=== PATIENT | male | born 1960 | race African-American/Black ===

== ENCOUNTER 2019-01-12 11:24 | Inpatient (IN) ==
[2019-01-12] MEDS ORDERED: ZOFRAN IV ONE (12:00)
[2019-01-12] MEDS ORDERED: MORPHINE IV ONE (12:00)
[2019-01-12] MEDS ORDERED: NS 1,000 ML IV ONE (12:00)
[2019-01-12 12:21] LABS: BASO# 0.03 X1000 (0.0-0.2); BASO% 0.3 % (0.0-0.8); EOS# 0.13 X1000 (0.0-0.7); EOS% 1.1 % (0.0-10.0); HEMATOCRIT 43.7 % (42.0-52.0); HEMOGLOBIN 14.8 g/dL (14.0-18.0); IMM GRAN# 0.05 X1000 (0.0-0.04); IMM GRAN% 0.4 % (0.0-0.5); LYMPH% 20.9 % (20.5-51.1); MCHC 33.9 g/dL (33-37); MCV 91.4 FL (81-99); MONO# 0.97 X1000 (0.11-0.59); MONO% 8.1 % (1.7-9.3); MPV 9.7 FL (7.4-10.4); NEUT# 8.26 X1000 (1.4-6.5); NEUT% 69.2 % (42.2-75.2); PLT 275 X1000 (130-400); RBC 4.78 XMIL (4.7-6.1); RDW 12.4 % (11.5-14.5); WBC 11.94 X1000 (4.8-10.8)
--- NOTE | 2019-01-12 12:42 | Diag Imaging Result Doc PS360 ---
EXAM: CT ABDOMEN/PELVIS W/O CONTRAST 01/12/2019 HISTORY: FLANK PAIN TECHNIQUE: This exam was performed using automated exposure control, adjustment of mA or kV according to patient size, and/or use of iterative reconstruction technique. COMMENT: There are no previous studies available for comparison. There is no evidence of acute disease in the visualized portion of the chest. There are calcifications in the mitral valve annulus. The spleen is not enlarged. There is some apparent hyperplasia of the left adrenal gland. There is no evidence of nephrolithiasis or hydronephrosis. There is some stool throughout the colon. There is a fat-containing umbilical hernia. There is stool in the rectum. The urinary bladder is not distended. There is no evidence of appendicitis. There is dilatation of some of the jejunal loops with decompression of the distal ileum. IMPRESSION: No evidence of urolithiasis or obstructive uropathy. Apparent distal small bowel obstruction. Constipation. Electronically signed by Derian Rasheed 01/12/2019 12:39 PM
[2019-01-12 12:51] LABS: AGAP 11; ALB/GLOB RATIO 1.4; ALBUMIN 3.7 g/dL (3.5-5.0); ALKALINE PHOSPHATASE 99 U/L (32-122); BUN 11 mg/dL (8-22); CALCIUM 9.2 mg/dL (8.8-10.2); CHLORIDE 103 mmol/L (98-107); COSMO 279; CREATININE 0.7 mg/dL (0.7-1.2); ESTIMATED GFR > 60; GLUCOSE 141 mg/dL (70-104); GOT 18 U/L (10-34); GPT 17 U/L (10-44); LIPASE 88 U/L (13-60); SODIUM 139 mmol/L (136-145); TCO2 25 mmol/L (25-35); TOTAL BILIRUBIN 0.36 mg/dL (0.20-1.00); TOTAL PROTEIN 6.3 g/dL (6.3-8.3)
--- NOTE | 2019-01-12 13:04 | PROVIDER DOCUMENTATION ---
This chart was entered by Nayana Castillo Scribe, acting as scribe for Nhan Mayer MD. HPI-Abdominal Pain/GI Problem - General Chief Complaint: Abdominal Pain Stated Complaint: STOMACH PAIN Time Seen by Provider: 01/12/19 11:50 Source: patient Allergies/Adverse Reactions: Patient Allergies Allergy/AdvReac Type Severity Reaction Status Date / Time No Known Allergies Allergy Verified 01/12/19 12:40 - History of Present Illness-ABD Nature of Presenting Problems: Patient is a 58 year old male who presents with generalized abdominal pain. S tates pain started 2 hours ago. Denies nausea, vomiting and fever. Abdominal Pain Onset Location: reports: generalized abdomen Pain Radiation: reports: no radiation Quality of Pain: reports: aching Severity in ED: reports: moderate Onset/Duration: reports: 1-3 hours ago (2 hours ago) Timing: reports: still present Activities at Onset: reports: light activity Associated Symptoms: denies: fever/chills, nausea, vomiting Last BM: 2 days ago Bruising or Bleeding Gums?: No Similar Symptoms Previously?: No Recently seen or treated by another doctor?: No Review of Systems - Adult - REVIEW OF SYSTEMS - ADULT ROS:: limited per condition Constitutional: reports: no symptoms reported. denies: chills, fever, fatique Eyes: reports: no symptoms reported Ears, Nose, Mouth & Throat: reports: no symptoms reported Cardiovascular: reports: no symptoms reported Respiratory: reports: no symptoms reported Gastrointestinal: reports: see HPI, abdominal pain (generalized). denies: nausea, vomiting Genitourinary: reports: no symptoms reported Musculoskeletal: reports: no symptoms reported Integumentary: reports: no symptoms reported Neurological: reports: no symptoms reported Psychiatric: reports: no symptoms reported Endocrine: reports: no symptoms reported Hematologic/Lymphatic: reports: no symptoms reported Allergic/Immunologic: reports: no symptoms reported All Other Systems: Reviewed and Negative Past History - Adult - PAST MEDICAL HISTORY-ADULT Review of Records: reports: Old Records Reviewed, Nursing Assessment Review, Medications Reviewed, Social history reviewed & non-contributory. Major Childhood Illnesses: reports: denies history Cardiovascular: reports: denies history Respiratory: reports: denies history Gastrointestinal: reports: denies history Obstetrical/Gynecological: reports: denies history Genitourinary: reports: denies history Musculoskeletal: reports: denies history Neurological: reports: denies history Endocrine/Immune: reports: denies history Other Conditions: reports: denies history - PRIOR SURGERIES/PROCEDURES Surgical/Procedure History: reports: reviewed, not pertinent - IMMUNIZATION STATUS Childhood Immunizations: See Nurse Assessment Flu Vaccine: See Nurse Assessment - FAMILY HISTORY Family History: reviewed, not pertinent - SOCIAL HISTORY Smoking: denies Substance Use: denies Physical Exam-General - PHYSICAL EXAM-ADULT Initial Vital Signs Reviewed: Yes - CONSTITUTIONAL General Appearance: alert, mild distress. negative: lethargic - HEAD, EARS, NOSE, MOUTH & THROAT HENMT: normocephalic/atraumatic, other (dry mucous membranes. no dentition). negative: angioedema - RESPIRATORY Respiratory: chest non-tender, lungs clear, normal breath sounds. negative: crackles, stridor - CARDIOVASCULAR Cardiovascular: normal peripheral pulses, regular rate, rhythm. negative: t achycardia - GASTROINTESTINAL (ABDOMEN) Abdominal Exam: normal bowel sounds, soft, tenderness (diffuse), hernia (umbilical). negative: guarding, rebound - MUSCULOSKELETAL Extremity: non-tender, normal inspection. negative: deformity - SKIN Integumentary: normal color, normal turgor, warm/dry. negative: cyanosis, jaundice - NEUROLOGIC Neurologic: grossly normal. negative: aphasia, facial droop - PSYCHIATRIC Psych/Mental Status: oriented x 3, disheveled. negative: paranoid Progress - PLAN OF CARE/RESULTS Progress/Plan/Lab Results: Vital Signs - 8 hr 01/12/19 11:36 Temperature 97.4 F L Pulse Rate 69 Respiratory Rate 25 H Blood Pressure 146/96 O2 Sat by Pulse Oximetry 100 Orders Category Date Time Status Saline Loc NOW Care 01/12/19 12:00 Ordered NPO Diet 01/12/19 12:[address] ABDOMEN/PELVIS W/O CONTRAST [CT] Stat Exams 01/12/19 12:01 Ordered ALCOHOL BLOOD Stat Lab 01/12/19 12:01 Uncollected CBC WITH ELECTRONIC DIFF [HEME] Stat Lab 01/12/19 12:00 Ordered COMPREHENSIVE METABOLIC PANEL [CHEM] Stat Lab 01/12/19 12:01 Uncollected LIPASE [CHEM] Stat Lab 01/12/19 12:01 Uncollected UA NIMS W/REFLEX CULT [URINALYSIS] Stat Lab 01/12/19 12:01 Uncollected URINE DRUG SCREEN Stat Lab 01/12/19 12:01 Uncollected Morphine Med 01/12/19 12:00 Once 4 mg IV NOW ONE Ns 1000 ml IV Bolus X1 Med 01/12/19 12:00 Ordered 0.9% Sodium Chloride Inj [Ns] 1,000 ml IV 999 mls/hr Ondansetron [Zofran] Med 01/12/19 12:00 Once 4 mg IV NOW ONE Result Diagrams: 01/12/19 12:00 01/12/19 12:00 - REASSESSMENT Reassessment #1 Time Reassessed: 12:28 Status: improving - CT/MRI 1 CT Study: Abdomen, Pelvis Impression: See EMR Report ( EXAM: CT ABDOMEN/PELVIS W/O CONTRAST 01/12/2019 HISTORY: FLANK PAIN TECHNIQUE: This exam was performed using automated exposure control, adjustment of mA or kV according to patient size, and/or use of iterative reconstruction technique. COMMENT: There are no previous studies available for comparison. There is no evidence of acute disease in the visualized portion of the chest. There are calcifications in the mitral valve annulus. The spleen is not enlarged. There is some apparent hyperplasia of the left adrenal gland. There is no evidence of nephrolithiasis or hydronephrosis. There is some stool throughout the colon. There is a fat-containing umbilical hernia. There is stool in the rectum. The urinary bladder is not distended. There is no evidence of appendicitis. There is dilatation of some of the jejunal loops with decompression of the distal ileum. IMPRESSION: No evidence of urolithiasis or obstructive uropathy. Apparent distal small bowel obstruction. Constipation. Electronically signed by Derian Rasheed 01/12/2019 12:39 PM 01/12/19 1239 Interpreting Physician: Derian Rasheed MD Dictated Date/Time : 01/12/19 1234 cc: Nhan Mayer MD; None,PCP) - CONSULTS/PCP/HOSPITALIST Notification #1 *Consult/PCP/Hospitalist*: CORIN Lucas for Hospitalist Time Discussed: 12:58 Reason/Comments: Dr. Mayer consulted with Shayy about patient. Consult Disposition: Will see in ED, Admit Departure - Departure Date of Disposition Decision: 01/12/19 Time of Disposition Decision: 12:58 DIAGNOSIS: Small bowel obstruction Disposition: ADMITTED INPATIENT 09 Certified Medical Emergency: Emergent Condition: Stable Referrals and Follow-Ups: None,PCP [Primary Care Provider] - - Critical Care Note This patient required my direct & personal management of CC.: No Attestation - Physician/ HUGO Attestation The physician spent face to face time with patient:: Yes Advanced Practice Provider documentation review:: Supervising physician onsite and consulted in the evaluation and care of this patient. The physician did have a face to face encounter with the patient. This chart was documented by the indicated scribe, (Nayana Castillo Scribe) and accurately reflects the services I performed and decisions made by me, Nhan Mayer MD, as attested by the provider's signature.
--- NOTE | 2019-01-12 14:49 | HISTORY AND PHYSICAL ---
CHIEF COMPLAINT: Abdominal pain, nausea, vomiting. HISTORY OF PRESENT ILLNESS: This is a 58-year-old gentleman, who presents to the emergency room complaining of a sudden onset of abdominal pain that started about 2 hours prior to coming to the emergency room. He describes this pain as a squeezing stabbing type pain. He states that he had no warning. Shortly after the pain, he began to break out in a sweat. He states he was not sick prior to this. He denies any nausea, vomiting, diarrhea. His abdomen is distended. He does have a noticeable umbilical hernia. I am unable to tell if it is reducible as any palpation he screams and guards. He does have bowel sounds in his upper quadrants. PAST MEDICAL HISTORY: He denies. PAST SURGICAL HISTORY: Denies. SOCIAL HISTORY: He denies alcohol, tobacco, or illicit drug use. ALLERGIES: No known drug allergies. HOME MEDICATIONS: None. REVIEW OF SYSTEMS: Discussed with patient, pertinent positives stated in the HPI. He denied any syncope, dizziness, chest pain, palpitations, any nausea, vomiting, diarrhea constipation, any black or bloody vomitus or stools, any hematuria, dysuria, frequency, urgency. PHYSICAL EXAMINATION: GENERAL: This is a 58-year-old gentleman, who is lying on the stretcher in the emergency room. He is writhing from [id number] at times due to pain. VITAL SIGNS: Blood pressure is 146/96 with a heart rate of 69, respirations are 22, temperature is 97.4, room air saturations 100%. EYES: Pupils are equal, round and reactive to light. EOMs are intact. Sclera anicteric. HEENT: Head is normocephalic, atraumatic. Mucous membranes are moist. NECK: Supple with trachea midline. CARDIOVASCULAR: Regular rate and rhythm. S1, S2 appreciated. Bilateral calves are nontender. He has no lower extremity edema with peripheral pulses palpable x4 extremities. PULMONARY: Breath sounds clear. No increased work of breathing noted. GASTROINTESTINAL: Abdomen is distended. It is soft. He does have diffuse tenderness. He does have bowel sounds heard very well in the upper quadrants. GENITOURINARY: He has no CVA or suprapubic tenderness. NEUROLOGIC: He is alert and oriented. LABORATORY: WBC is 11.9 with hemoglobin 14.8, hematocrit 43.7, platelets 275. Sodium 139, potassium 4, BUN 11, glucose 141. Lipase is 88. Blood alcohol reveals none detected. CT scan of the abdomen and pelvis reveals no evidence of urolithiasis or obstructive uropathy, apparent distal small bowel obstruction, and constipation. ASSESSMENT AND PLAN: 1. Small bowel obstruction. 2. Constipation. 3. Abdominal pain. 4. Leukocytosis. 5. Elevated lipase. 6. Deep venous thrombosis and gastrointestinal prophylaxis. PLAN: The patient will be admitted to the Surgical floor. n.p.o. consult , General Surgery. hydration with saline at 125 an hour, giving Dilaudid and Zofran for pain and nausea. CBC and BMP in the morning. NG tube to low int suction DVT prophylaxis will use SCDs, and GI prophylaxis will use Protonix. Further treatments pending hospital course. Plan was discussed with Dr. Tapia. Dictated by CORIN Quach for Scottie Tapia MD cc: CORIN Quach MD [facility]
[2019-01-12] MEDS: DILAUDID IV PRN (15:16)
[2019-01-12] MEDS: DULCOLAX PR SCH ×2 (15:22→21:30)
[2019-01-12] MEDS: PROTONIX IV SCH (15:23)
[2019-01-12] MEDS: NS 1,000 ML IV SCH ×2 (15:29→21:33)
--- NOTE | 2019-01-12 15:52 | Diag Imaging Result Doc PS360 ---
EXAM: CHEST/ABD TUBE PLACEMENT 01/12/2019 HISTORY: TUBE PLACEMENT TECHNIQUE: AP upright portable chest and abdomen for NG tube placement COMMENT: The NG tube tip is in the fundus of the stomach. There is stool throughout the transverse colon. IMPRESSION: NG tube in the stomach. Electronically signed by Derian Rasheed 01/12/2019 3:50 PM
--- NOTE | 2019-01-12 18:42 | HISTORY AND PHYSICAL ---
ADDENDUM REPORT I have seen and examined Mr. Lawrence today. There were 2 male friends with him at the bedside. Mr. Kiser comes in because of abdominal pain. Investigations have revealed a small bowel obstruction, constipation and an umbilical hernia defect. He denies any chronic medical problems and he denies any laparoscopic surgeries in the past. I have reviewed his lab works as well as his imaging studies subparagraph. ASSESSMENT: 1. Distal small bowel obstruction. DNG tube is in place for gastric decompression. We will continue adequate pain control and p.o. hydration and awaiting surgery evaluation. We will get a follow-up KUB in the morning. 2. Constipation. We will give the patient Dulcolax to help evacuate the bowel. 3. Mild clinical volume depletion. Continue with IV fluids. 4. Mild liposemia. I do not think patient has acute pancreatitis. I think this is just a reflection of GI pathology. PLAN: So for today, we are going to continue NPO, NG tube for gastric decompression, adequate fluid hydration and pain control. Please refer to the details of the H P which has been dictated in the chart by the SPORT INTERN. cc: Scottie Tapia MD
--- NOTE | 2019-01-12 19:54 | GENERAL SURGERY CONSULTATION ---
DATE: 01/12/2019 TIME: 5:35 p.m. HISTORY OF PRESENT ILLNESS: Ms. Kiser is a 58-year-old male who presents to the emergency room with about a 2 hour history of abdominal pain. His last bowel movement was the night before last. He denies any constipation. Denies any abdominal surgery. He does have an umbilical hernia. It has been there for quite some time. PAST SURGICAL HISTORY: He denies any previous surgery. PAST MEDICAL HISTORY: He denies any significant past medical history. MEDICATIONS: Denies any home medications. ALLERGIES: Denies any drug allergies. SOCIAL HISTORY: He does smoke. He does drink alcohol occasionally. Denies illicit drug use. FAMILY HISTORY: Not known. REVIEW OF SYSTEMS: As noted above. Denies any fever chest pain, cough, but does report some abdominal pain. PHYSICAL EXAMINATION: Vital Signs: He is afebrile. Heart rate 64, respiratory rate 20, blood pressure 146/96. Neck: No cervical adenopathy. Lungs: Bilateral breath sounds. Heart: He has a grade 3-4 systolic murmur. Abdomen: Soft. Bowel sounds are quiet. Umbilical hernia is noted. It is nonreducible. Femoral pulses are present. He has pedal pulses. No peripheral edema. He falls off to sleep easily, but does arouse when spoken to. He has a 5 cm lipoma in the left arm. ASSESSMENT: 1. Constipation. 2. Abdominal pain. PLAN: The plan will be to recheck his flat and upright of the abdomen tomorrow, continue with hydration, and he may need some cathartics. cc: Ozzy Carpenter MD
[2019-01-13] MEDS: ZOFRAN IV PRN ×2 (00:34→09:53)
[2019-01-13 01:40] LABS: URINE SOURCE CLEAN CATCH
[2019-01-13 01:44] LABS: BILIRUBIN URINE NEGATIVE (NEGATIVE); BLOOD URINE NEGATIVE (NEGATIVE); COLOR YELLOW; GLUCOSE URINE 100 mg/dL (NEGATIVE); KETONE URINE TRACE mg/dL (NEGATIVE); LEUKOCYTES URINE NEGATIVE (NEGATIVE); NITRITE URINE NEGATIVE (NEGATIVE); PH URINE 6.5; PROTEIN URINE TRACE mg/dL (NEGATIVE); SP GRAVITY URINE 1.024; TURBIDITY URINE CLEAR (CLEAR); UROBILINOGEN URINE 2 mg/dL (NORMAL)
[2019-01-13 01:45] LABS: UR EPITHELIAL CELLS <10 /HPF (<10); URINE BACTERIA NEGATIVE /HPF; URINE RBC <10 /HPF (<10); URINE WBC <10 /HPF (<10)
[2019-01-13 02:06] LABS: UR AMPHETAMINES QUAL PRESUMPTIVE POSITIVE (NONE DETECT); UR BARBITUATES QUAL NONE DETECTED (NONE DETECT); UR BENZODIAZEPIN QUAL NONE DETECTED (NONE DETECT); UR CANNABINOIDS QUAL NONE DETECTED (NONE DETECT); UR COCAINE QUAL NONE DETECTED (NONE DETECT); UR METHADONE QUAL NONE DETECTED (NONE DETECT); UR OPIATES QUAL PRESUMPTIVE POSITIVE (NONE DETECT); UR OXYCODONE QUAL NONE DETECTED (NONE DETECT); UR PCP QUAL NONE DETECTED (NONE DETECT)
[2019-01-13] MEDS: DULCOLAX PR SCH (04:12)
[2019-01-13 06:22] LABS: BASO# 0.03 X1000 (0.0-0.2); BASO% 0.2 % (0.0-0.8); EOS# 0.04 X1000 (0.0-0.7); EOS% 0.2 % (0.0-10.0); HEMATOCRIT 48.3 % (42.0-52.0); HEMOGLOBIN 16.1 g/dL (14.0-18.0); IMM GRAN# 0.07 X1000 (0.0-0.04); IMM GRAN% 0.4 % (0.0-0.5); LYMPH# 1.58 X1000 (1.2-3.4); LYMPH% 9.2 % (20.5-51.1); MCH 31.6 PG (27-31); MCHC 33.3 g/dL (33-37); MCV 94.7 FL (81-99); MONO# 1.16 X1000 (0.11-0.59); MONO% 6.8 % (1.7-9.3); MPV 9.7 FL (7.4-10.4); NEUT# 14.27 X1000 (1.4-6.5); NEUT% 83.2 % (42.2-75.2); PLT 276 X1000 (130-400); WBC 17.15 X1000 (4.8-10.8)
[2019-01-13] MEDS: NS 1,000 ML IV SCH ×2 (06:34→22:25)
[2019-01-13 07:39] LABS: AGAP 19; BUN 6 mg/dL (8-22); CHLORIDE 104 mmol/L (98-107); COSMO 278; CREATININE 0.7 mg/dL (0.7-1.2); ESTIMATED GFR > 60; GLUCOSE 125 mg/dL (70-104); POTASSIUM 4.2 mmol/L (3.5-5.1); SODIUM 140 mmol/L (136-145); TCO2 17 mmol/L (25-35)
--- NOTE | 2019-01-13 08:00 | Diag Imaging Result Doc PS360 ---
EXAM: FLAT/UPRIGHT ABD/1 VIEW CHEST 01/13/2019 HISTORY: abdominal pain TECHNIQUE: Flat and upright abdomen with PA chest COMMENT: There is a large amount of stool in the colon. There are two loops of small bowel demonstrating dilatation with air-fluid levels in the upper mid abdomen and left abdomen, otherwise there is no evidence of gastric distention. No evidence organomegaly or mass is present. The appearance of the chest is unremarkable. IMPRESSION: Severe constipation. The possibility of ileus or partial small bowel obstruction cannot be excluded. Electronically signed by Derian Rasheed 01/13/2019 7:58 AM
[2019-01-13] MEDS ORDERED: FLEET ENEMA PR ONE (08:16)
--- NOTE | 2019-01-13 10:34 | GENERAL SURGERY PROGRESS NOTE ---
DATE: 01/13/2019 TIME: 1011 hours. SUBJECTIVE: Mr. Kiser is afebrile, heart rate 56, blood pressure 148/90. He says he has passed a little liquid stool this morning. He has thrown up a couple times as well. His NG tube has been out since last night he says. His x-ray this morning shows constipation. His white count is up to 17. His abdominal exam is essentially the same; it is not particularly tender to palpation. PLAN: The plan will be to give him tap water enema to help evacuate some of the stool in his colon. I think his NG tube could be left out. I think it will be safe to start him on clear liquids today. cc: Ozzy Carpenter MD
--- NOTE | 2019-01-13 11:06 | PROGRESS NOTE ---
DATE: 01/13/2019 SUBJECTIVE: This morning Mr. Kiser referred to be doing okay. No abdominal pain. He said he accidentally yanked out his NG tube. He has not had any vomiting. No bowel movement either. OBJECTIVE: Vitals: Blood pressure is 148/90, pulse of 53, respirations 16, temperature is 97.6. Patient is saturating 100% on room air. General: Mr. Kiser is a 58-year-old gentleman. He is in bed, no distress. HEENT: Mucosa is pink and moist. Anicteric. Acyanotic. Neck: Supple. Chest: Good air entry bilateral. There were no crepitations, no rhonchi. Cardiovascular: Regular rate and rhythm. GI: Abdomen is soft. There is some old scar on the anterior abdominal wall. Bowel sounds are present. There is also an umbilical hernia defect. Extremities: No pedal edema. CHICKEN HANDLER: Patient is awake, alert and oriented. There is no focal neurological deficit. IMAGING STUDIES: A KUB this morning shows severe constipation, possibility of ileus or partial small-bowel cannot be excluded. LABORATORY DATA: WBC is 17.15. Rest of CBC is normal. Chemistry is also reviewed, completely normal. ASSESSMENT: 1. Question of distal partial small bowel obstruction. The patient has entirely removed his nasogastric tube. He is currently asymptomatic. No nauseation, no abdominal pain, so we will just keep an eye on him. 2. Severe constipation. The patient did not respond to Dulcolax. We will give him oral MiraLAX and also a Fleet enema. 3. Clinical volume depletion. Patient is on intravenous fluids. 4. Mild elevated lipase noted. 5. Umbilical hernia noted. This is reducible. It does not seem to have any complications. PLAN: So, today Mr. Kiser is a lot better. No pain. No nausea. We are going to start him on clear liquids. We will also put him on a bowel regimen to help with his bowel movement. cc: Scottie Tapia MD
[2019-01-13] MEDS: MILK OF MAGNESIA PO SCH ×2 (12:07→22:26)
[2019-01-13] MEDS: PROTONIX IV SCH (16:29)
[2019-01-13] MEDS: SODIUM CHLORIDE 0.9% INJ SCH (16:30)
[2019-01-14 06:57] LABS: HEMATOCRIT 49.6 % (42.0-52.0); HEMOGLOBIN 16.4 g/dL (14.0-18.0); MCHC 33.1 g/dL (33-37); MCV 93.8 FL (81-99); MPV 9.8 FL (7.4-10.4); RBC 5.29 XMIL (4.7-6.1); RDW 12.9 % (11.5-14.5); WBC 13.9 X1000 (4.8-10.8)
[2019-01-14 06:59] LABS: AGAP 13; ALBUMIN 3.3 g/dL (3.5-5.0); BUN 8 mg/dL (8-22); CALCIUM 9.1 mg/dL (8.8-10.2); CHLORIDE 103 mmol/L (98-107); COSMO 283; CREATININE 0.9 mg/dL (0.7-1.2); ESTIMATED GFR > 60; GLUCOSE 130 mg/dL (70-104); LIPASE 10 U/L (13-60); POTASSIUM 3.6 mmol/L (3.5-5.1); SODIUM 142 mmol/L (136-145); TCO2 26 mmol/L (25-35)
[2019-01-14] MEDS: NS 1,000 ML IV SCH ×2 (06:59→18:15)
[2019-01-14] MEDS: MILK OF MAGNESIA PO SCH ×2 (08:30→20:48)
[2019-01-14] MEDS: DILAUDID IV PRN (08:30)
--- NOTE | 2019-01-14 09:03 | GENERAL SURGERY PROGRESS NOTE ---
DATE: 01/14/2019 It is 8:50 in the morning. Mr. Kiser is afebrile, heart rate 56, blood pressure 145/83. His bowels did move yesterday. He is not really hungry yet. He is fearful about eating solid food still. White count is down to 13,900. Chemistry is fine. His lipase is down to 10. The plan today is to advance him to full liquids and then we will see how he did. We will check his chest x-ray and his abdominal film today as well. cc: Ozzy Carpenter MD MTDD
--- NOTE | 2019-01-14 09:08 | Diag Imaging Result Doc PS360 ---
EXAM: KUB ABDOMEN 01/14/2019 HISTORY: SBO TECHNIQUE: KUB COMMENT: Compared to 01/13/2019 there is less stool present in the colon. There is still some gaseous dilatation of a small bowel loop in the left upper quadrant. The stomach is not distended. IMPRESSION: Improved constipation. Electronically signed by Derian Rasheed 01/14/2019 9:05 AM
--- NOTE | 2019-01-14 13:38 | PROGRESS NOTE ---
DATE: 01/14/2019 This morning Mr. Kiser referred to be doing okay. Denies any new complaint. He said he had a bowel movement yesterday 1 time. OBJECTIVE: Vitals: Blood pressure is 151/89, pulse of 67, respiration is 20, temperature is 98.3 degrees. General: Mr. Kiser 58-year-old gentleman he is in bed no distress. Mucosa is pink and moist. Anicteric. Acyanotic. Neck: Supple. Respiratory: Good air entry bilaterally. No crepitations. No rhonchi. Cardiovascular: Regular rate and rhythm. Abdomen: Soft, minimally tender around the periumbilical area. There is an umbilical hernia defect. There is an old scar on the anterior abdominal wall. LADDERMAN: Patient is awake, alert and oriented. LABORATORY DATA: WBC is down to 13.90. Rest of chemistry is unremarkable. Patient's lipase is also down to 10. A KUB this morning shows improved constipation. ASSESSMENT: 1. Severe constipation. Patient had a bowel movement yesterday. A followup chest x-ray seems to suggest some improvement. We going to continue with the current bowel regimen. 2. Questionable distal partial small bowel obstruction, surgery on board. There is a plan for a repeat KUB tomorrow. 3. Clinical volume depletion improved. 4. Mildly elevated lipase level on admission. This has resolved. 5. Umbilical hernia noted. I think Mr. Kiser is doing a lot better. We are going to continue with the bowel regimen. His diet has been advanced to full liquid diet. Will follow with further recommendations from surgery. cc: Scottie Tapia MD [facility]
[2019-01-14] MEDS ORDERED: FLEET ENEMA PR ONE (17:13)
[2019-01-14] MEDS: PROTONIX IV SCH (18:11)
[2019-01-15] MEDS: NS 1,000 ML IV SCH ×3 (03:53→14:19)
--- NOTE | 2019-01-15 08:38 | Diag Imaging Result Doc PS360 ---
EXAM: KUB ABDOMEN HISTORY: SBO TECHNIQUE: Abdomen single view COMPARISON: 01/14/2019 FINDINGS: No organomegaly. No bowel obstruction. There is stool throughout the colon. No foreign body. IMPRESSION: Mild constipation Electronically signed by Josiah Adkins 01/15/2019 8:36 AM
[2019-01-15] MEDS: MILK OF MAGNESIA PO SCH ×2 (10:34→23:58)
--- NOTE | 2019-01-15 12:07 | GENERAL SURGERY PROGRESS NOTE ---
DATE: 01/15/2019 SUBJECTIVE: Mr. Shepherd had a bowel movement yesterday, but not today. He has vomiting again this morning. RADIOLOGICAL DATA: His x-ray still shows some stool in his colon. PLAN: I think we will not advance his diet. We will give him another tap water enema to try to get rid of the stool in his rectum. cc: Ozzy Carpenter MD
[2019-01-15] MEDS: ZOFRAN IV PRN (12:11)
--- NOTE | 2019-01-15 13:44 | PROGRESS NOTE ---
DATE: 01/15/2019 SUBJECTIVE: This morning, Mr. Kiser referred to be feeling a little better but he did vomit early on and he has some mild abdominal discomfort. OBJECTIVE: Vital Signs: Blood pressure is 146/82, pulse of 93, respirations are 15, temperature is 98 degrees, patient is saturating 98% on room air. General Examination: Mr. Kiser is a 58- year-old, gentleman. He is in bed. He is not in any distress. HEENT: Mucosa is pink and moist. Anicteric and acyanotic. Neck: Supple. Chest: Good air entry bilaterally. There are no crepitations. No rhonchi. Cardiovascular: Regular rate and rhythm. Abdomen: Soft. It is minimally distended around the periumbilical area. There is an umbilical hernia defect noted. There is also some old scar on the anterior abdominal wall. 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 There is no focal neurological deficit. Laboratory Data: No lab work for this morning. KUB this morning continues to show some stool throughout the colon. ASSESSMENT: 1. Severe constipation. We will continue with bowel regimen. 2. Questionable distal partial small bowel obstruction. Surgery is on board. The patient had some vomiting this morning so surgery has decided not to advance his diet and we will repeat a KUB tomorrow. 3. Clinical volume depletion, improved. 4. Mildly elevated lipase on admission, resolved. 5. Umbilical hernia, noted. PLAN: Mr. Kiser is a gentleman who has been admitted for the past 3 days because of abdominal pain, some nausea and vomiting which initially we thought had a partial small bowel obstruction. It appears he had just severe constipation/obstipation. We have him on a bowel regimen. He is making some progress. We will continue pain management, adequate hydration, and replace all electrolyte abnormalities, and followup with a repeat KUB tomorrow morning. Mr. Kiser' disposition is going to depend on the course of his disease process. cc: Scottie Tapia MD
[2019-01-15] MEDS: PROTONIX IV SCH (14:18)
[2019-01-15] MEDS: SODIUM CHLORIDE 0.9% INJ SCH (14:18)
[2019-01-16] MEDS: NS 1,000 ML IV SCH ×3 (02:35→20:52)
--- NOTE | 2019-01-16 06:38 | Diag Imaging Result Doc PS360 ---
KUB ABDOMEN - 01/16/2019 INDICATION: SBO COMPARISON: 01/15/2019 FINDINGS: Portable technique was used. Detail is poor. There are some gas distended loops of small bowel centrally. These appear abnormally dilated. There is mild constipation of the right side of the colon. IMPRESSION: Abnormal but nonspecific pattern. Electronically signed by Elder Heredia 01/16/2019 6:35 AM
[2019-01-16] MEDS: SODIUM CHLORIDE 0.9% INJ SCH (14:36)
[2019-01-16] MEDS: PROTONIX IV SCH (14:36)
--- NOTE | 2019-01-16 14:42 | GENERAL SURGERY PROGRESS NOTE ---
DATE: 01/16/2019 SUBJECTIVE: Mr. Kiser T-max is 99, heart rate 89, blood pressure 97/60. He has not vomited today. He vomited quite a bit yesterday, in fact 2000 mL was recorded. His appetite however is poor. He did not take any liquids for lunch. He says he still has not had a bowel movement. He has passed a little flatus. X-RAY: His x-ray shows just a nonspecific pattern. ASSESSMENT: This gentleman has been here for 3 or 4 days now and has really shown little progress. I think we should repeat his CAT scan with p.o. contrast to see if there is something occult causing partial blockage in his small bowel. cc: Ozzy Carpenter MD
[2019-01-16] MEDS ORDERED: LACTULOSE PO ONE (15:03)
[2019-01-16] MEDS ORDERED: RELISTOR SUBQ ONE (15:03)
[2019-01-16] MEDS ORDERED: MIRALAX PO SCH (15:15)
[2019-01-16] MEDS ORDERED: SODIUM CHLORIDE 0.9% INJ PRN (16:00)
[2019-01-16] MEDS ORDERED: PHENERGAN IV PRN (16:00)
[2019-01-16 17:02] LABS: AGAP 12; ALBUMIN 3.5 g/dL (3.5-5.0); ALKALINE PHOSPHATASE 95 U/L (32-122); BUN 17 mg/dL (8-22); CALCIUM 8.9 mg/dL (8.8-10.2); CHLORIDE 98 mmol/L (98-107); COSMO 269; CREATININE 0.9 mg/dL (0.7-1.2); ESTIMATED GFR > 60; GLUCOSE 121 mg/dL (70-104); GOT 8 U/L (10-34); GPT 7 U/L (10-44); POTASSIUM 3.6 mmol/L (3.5-5.1); SODIUM 133 mmol/L (136-145); TCO2 23 mmol/L (25-35); TOTAL BILIRUBIN 1.03 mg/dL (0.20-1.00); TOTAL PROTEIN 7.1 g/dL (6.3-8.3)
--- NOTE | 2019-01-16 17:06 | PROGRESS NOTE ---
DATE: 01/16/2019 SUBJECTIVE: Patient has no major complaints except he is throwing up and abdominal distention. OBJECTIVE: Heart rate 89, respiratory rate 18, temperature 98.5 degrees CARDIOVASCULAR: Regular rate and rhythm. Pulmonary: Bilateral breath sounds clear to auscultation. GI: Was soft, nontender, he is distended and bowel sounds were diminished. LABORATORY DATA: White count is 13, hemoglobin and hematocrit 16 and 49, platelets 294,000. Lipase is down. PROBLEM LIST: 1. Abdominal pain with possible small bowel obstruction. He is throwing up and plain films have been nonrevealing but clinically he is not well, really feel like it looks like he has got a small bowel obstruction but CT has been ordered, he is on IV fluids, pain medication, nausea medication and our plan is to follow up with the CT if he has just plain constipation, work on aggressive bowel management if he has small bowel obstruction. We will place an NG and follow clinically. We will keep him NPO for now. He is not really tolerant of anything in any case. cc: Brendan Wilks MD MTDD
--- NOTE | 2019-01-16 17:11 | Diag Imaging Result Doc PS360 ---
EXAM: CT ABD/PELVIS W/ORAL CONT ONLY 01/16/2019 HISTORY: sbo TECHNIQUE: This exam was performed using automated exposure control, adjustment of mA or kV according to patient size, and/or use of iterative reconstruction technique. COMMENT: The study is compared with the previous examination of 01/12/2019. There is minimal platelike atelectasis in the right costophrenic sulcus. The stomach remains distended. There is distention of multiple small bowel loops. There is some gas and fecal debris in the colon particularly in the ascending colon. There is a somewhat indurated fat-containing umbilical hernia. This appears more inflamed than on the previous study. The distal small bowel is not distended. There is free fluid in the rectovesical pouch which was not present previously. The degree of dilatation of the small bowel has worsened. IMPRESSION: Worsened distal small bowel obstruction. Electronically signed by Derian Rasheed 01/16/2019 5:09 PM
[2019-01-16] MEDS: DILAUDID IV PRN (20:51)
--- NOTE | 2019-01-16 20:53 | Diag Imaging Result Doc PS360 ---
EXAM: CHEST/ABD TUBE PLACEMENT 01/16/2019 HISTORY: NG Tube Placement TECHNIQUE: Portable at 2044 COMMENT: There is an NG tube with its tip in the stomach. There is a fairly large amount of stool in the transverse colon. IMPRESSION: NG tube in the stomach. Electronically signed by Derian Rasheed 01/16/2019 8:50 PM
[2019-01-17] MEDS: LACTULOSE PO SCH ×2 (01:47→13:56)
[2019-01-17] MEDS: PROTONIX IV SCH ×2 (01:48→20:11)
[2019-01-17] MEDS: NS 1,000 ML IV SCH ×4 (05:47→20:11)
[2019-01-17 06:31] LABS: BASO# 0.03 X1000 (0.0-0.2); BASO% 0.3 % (0.0-0.8); EOS# 0.08 X1000 (0.0-0.7); EOS% 0.8 % (0.0-10.0); HEMATOCRIT 49.4 % (42.0-52.0); HEMOGLOBIN 16.3 g/dL (14.0-18.0); IMM GRAN% 1.1 % (0.0-0.5); LYMPH# 1.74 X1000 (1.2-3.4); LYMPH% 18.4 % (20.5-51.1); MCH 30.5 PG (27-31); MCV 92.5 FL (81-99); MONO# 2.23 X1000 (0.11-0.59); MONO% 23.5 % (1.7-9.3); MPV 9.7 FL (7.4-10.4); NEUT% 55.9 % (42.2-75.2); PLT 317 X1000 (130-400); RBC 5.34 XMIL (4.7-6.1); RDW 12.9 % (11.5-14.5); WBC 9.48 X1000 (4.8-10.8)
[2019-01-17 07:15] LABS: LYMPHS 18 % (21-51); MONO 21 % (1-9); SEGS 61 % (42-75)
--- NOTE | 2019-01-17 07:29 | GENERAL SURGERY PROGRESS NOTE ---
DATE: 01/17/2019 Mr. Kiser is not improved. His CT scan showed a worsening of the small bowel obstruction. He required replacement of his NG tube with a significant amount of NG output. He has now been in the hospital going on the 5th day with no improvement, in fact, a worsening picture on CT, so I think we need to proceed with exploration to find out what is causing his blockage, be it adhesion or whatever. I discussed this with him. We will plan to proceed later today. He understands and agrees. cc: Ozzy Carpenter MD
[2019-01-17] MEDS ORDERED: ZOFRAN ONE (14:36)
[2019-01-17] MEDS ORDERED: XYLOCAINE-MPF 2% ONE (14:36)
[2019-01-17] MEDS ORDERED: DECADRON ONE (14:36)
[2019-01-17] MEDS ORDERED: ROBINUL ONE (14:36)
[2019-01-17] MEDS ORDERED: NORCURON ONE (14:37)
[2019-01-17] MEDS ORDERED: DIPRIVAN 1% ONE (14:37)
[2019-01-17] MEDS ORDERED: FENTANYL ONE (14:37)
[2019-01-17] MEDS ORDERED: SODIUM CHLORIDE 0.9% 10 ML ONE ×3 (14:37→16:36)
[2019-01-17] MEDS ORDERED: QUELICIN (DOSE) ONE (14:37)
[2019-01-17] MEDS ORDERED: KEFZOL 1 GM/D5W 1 GM/50 ML IVPB ONE (15:51)
[2019-01-17] MEDS ORDERED: EPHEDRINE ONE (16:23)
[2019-01-17] MEDS ORDERED: NEO-SYNEPHRINE ONE (16:36)
[2019-01-17] MEDS ORDERED: NEOSTIGMINE ONE (16:48)
[2019-01-17 16:52] LABS: URINE SOURCE CATH
[2019-01-17] MEDS ORDERED: DILAUDID ONE (16:57)
[2019-01-17 16:59] LABS: UR EPITHELIAL CELLS <10 /HPF (<10); URINE BACTERIA NEGATIVE /HPF; URINE RBC <10 /HPF (<10); URINE WBC <10 /HPF (<10)
[2019-01-17 17:09] LABS: BILIRUBIN URINE SMALL (NEGATIVE); BLOOD URINE NEGATIVE (NEGATIVE); COLOR ORANGE; GLUCOSE URINE NEGATIVE (NEGATIVE); KETONE URINE 60 mg/dL (NEGATIVE); LEUKOCYTES URINE NEGATIVE (NEGATIVE); NITRITE URINE NEGATIVE (NEGATIVE); PROTEIN URINE TRACE mg/dL (NEGATIVE); SP GRAVITY URINE 1.034; TURBIDITY URINE CLEAR (CLEAR); UROBILINOGEN URINE NORMAL (NORMAL)
--- NOTE | 2019-01-17 17:15 | PROGRESS NOTE ---
DATE: 01/17/2019 SUBJECTIVE: Patient has no major complaints. NG is in place. OBJECTIVE: Vital Signs: Blood pressure 127/81, heart rate 79, respiratory 16, temperature 98.1 degrees. Cardiovascular: Regular rate and rhythm. Pulmonary: Bilateral breath sounds clear to auscultation. Gastrointestinal: Soft. No bowel sounds. LABORATORY DATA: White count is 9, hemoglobin 16, hematocrit 49, platelets 317,000. I do not have any electrolytes today. PROBLEM LIST: 1. Partial small bowel obstruction. NG is in place. The patient is actually undergoing surgery now for distal small-bowel obstruction per Dr. Carpenter. CT yesterday showed small bowel obstruction with a distal small bowel obstruction that was worsening, and we attempted to place an NG, but he refused initially, but it looks like it was placed overnight. 2. Severe constipation, obviously related to this distal small-bowel obstruction. DISPOSITION: Pending his clinical status. cc: Brendan Wilks MD
[2019-01-17] MEDS ORDERED: OFIRMEV 1000 MG/ISOTONIC SOLN 1,000 MG/100 ML BOTTLE ONE (17:22)
[2019-01-17] MEDS: DILAUDID ONE ×2 (17:22→17:50)
[2019-01-17] MEDS ORDERED: LR 0 ML ONE (17:39)
[2019-01-17] MEDS ORDERED: LR 500 ML ONE (17:55)
--- NOTE | 2019-01-17 17:57 | OPERATIVE NOTE ---
PROCEDURE DATE: 01/17/2019 NAME OF PROCEDURE: 1. Exploratory laparotomy. 2. Lysis of adhesions. 3. Appendectomy. 4. Repair of umbilical hernia. SURGEON: Ozzy Carpenter MD PROJECT DEVELOPMENT LEADER: Colten Shah MD, who assisted in exposure and all parts of the operation. PREOPERATIVE DIAGNOSES: 1. Small bowel obstruction. 2. Umbilical hernia. POSTOPERATIVE DIAGNOSES: 1. Small bowel obstruction secondary to a dense adhesion. 2. Umbilical hernia. 3. Chronic appendicitis. DESCRIPTION OF PROCEDURE: After satisfactory general endotracheal anesthesia was received, the abdomen was prepped and draped in a sterile fashion. A midline incision was made just at the edge of the umbilicus. We carried our incision through the subcutaneous tissue and through the midline fascia. We came to the middle of the umbilical hernia. We freed up the incarcerated omentum from the peritoneum. After entering the abdominal cavity, we extended the skin incision. We then explored and identified a dense adhesion that had the small bowel entrapped. We lysed that adhesion and then there was no further bowel obstruction. We ran the small bowel from the ligament of Treitz all the way to the ileocecal valve and there was no other binding of the small bowel and no masses were palpated. The cecum was identified. The appendix was identified. The dense adhesion was attached to the appendix. The appendix had a fecalith within it so we decided it was best to remove this appendix. We then used the electrocautery to cauterize the mesoappendix down to the appendiceal artery. We then clamped and ligated it with a 3-0 silk tie. Placed a 2-0 silk pursestring in the cecum at the base the appendix. We then crushed the base the appendix and ligated it with a 3-0 Polysorb free tie. We clamped it off distal to this and transected the appendix with a knife and handed off the appendix and the contaminated knife. We then inverted the appendiceal stump inside the cecum and secured the pursestring. We then ran the colon as well and it had quite a bit of stool within it. No masses were palpated. The gallbladder was difficult to visualize because it was shriveled up. The NG tube was noted within the stomach. No other abnormalities were identified. We then irrigated out the abdominal cavity. We then proceeded to close the peritoneum with a running 2-0 chromic. The umbilical hernia sac was excised and handed off as a specimen. After closing the peritoneum, we then closed the fascia with a running #2 Prolene beginning cephalad and going caudad. This closed the hernia defect, thereby repairing the umbilical hernia. Subcutaneous tissue was irrigated out. We then closed the skin with natalie. A bolus was placed on the umbilicus, a sterile dressing was applied, and a binder was placed. He tolerated the procedure satisfactorily and was sent to the recovery room in satisfactory condition. cc: Ozzy Carpenter MD
[2019-01-17] MEDS: SODIUM CHLORIDE 0.9% INJ SCH (20:11)
[2019-01-17] MEDS: LOVENOX SUBQ SCH (20:12)
[2019-01-17] MEDS: DILAUDID IV PRN ×2 (20:12→23:57)
[2019-01-18] MEDS: DILAUDID IV PRN ×4 (04:01→20:05)
[2019-01-18 06:13] LABS: BASO# 0.01 X1000 (0.0-0.2); BASO% 0.1 % (0.0-0.8); EOS# 0.02 X1000 (0.0-0.7); EOS% 0.2 % (0.0-10.0); HEMATOCRIT 47.2 % (42.0-52.0); HEMOGLOBIN 15.4 g/dL (14.0-18.0); IMM GRAN# 0.05 X1000 (0.0-0.04); IMM GRAN% 0.5 % (0.0-0.5); LYMPH# 1.21 X1000 (1.2-3.4); LYMPH% 12.4 % (20.5-51.1); MCH 30.4 PG (27-31); MCHC 32.6 g/dL (33-37); MCV 93.3 FL (81-99); MONO# 2.08 X1000 (0.11-0.59); MONO% 21.4 % (1.7-9.3); MPV 9.8 FL (7.4-10.4); NEUT# 6.37 X1000 (1.4-6.5); NEUT% 65.4 % (42.2-75.2); PLT 321 X1000 (130-400); RBC 5.06 XMIL (4.7-6.1); RDW 12.9 % (11.5-14.5); WBC 9.74 X1000 (4.8-10.8)
[2019-01-18 06:21] LABS: AGAP 9; BUN 18 mg/dL (8-22); CALCIUM 8.4 mg/dL (8.8-10.2); CHLORIDE 103 mmol/L (98-107); COSMO 275; CREATININE 0.9 mg/dL (0.7-1.2); ESTIMATED GFR > 60; GLUCOSE 148 mg/dL (70-104); MAGNESIUM 2.1 mg/dL (1.5-2.7); POTASSIUM 4.3 mmol/L (3.5-5.1); SODIUM 135 mmol/L (136-145); TCO2 23 mmol/L (25-35)
[2019-01-18 06:33] LABS: LYMPHS 12 % (21-51); MONO 20 % (1-9); SEGS 66 % (42-75)
[2019-01-18] MEDS: NS 1,000 ML IV SCH ×2 (09:21→17:31)
[2019-01-18] MEDS: PERIDEX MT SCH ×2 (09:22→20:05)
--- NOTE | 2019-01-18 11:15 | GENERAL SURGERY PROGRESS NOTE ---
DATE: 01/18/2019 Postop day 1 after a laparotomy, lysis of adhesions, appendectomy, and repair of his umbilical hernia. He is doing generally well with stable hemodynamics. Urine output is satisfactory. He still has quite bit out of his NG tube but he is taking ice chips. His white count is normal. Hemoglobin is fine. Chemistry is fine. The plan will be to maintain his NG tube until he starts to show bowel activity. The surgical associates will cover in my absence. cc: Ozzy Carpenter MD
[2019-01-18] MEDS: PROTONIX IV SCH (17:32)
[2019-01-18] MEDS: LOVENOX SUBQ SCH (20:04)
[2019-01-19] MEDS: DILAUDID IV PRN ×5 (01:31→20:56)
[2019-01-19] MEDS: NS 1,000 ML IV SCH ×4 (01:31→23:18)
[2019-01-19 06:20] LABS: BASO# 0.03 X1000 (0.0-0.2); BASO% 0.3 % (0.0-0.8); HEMATOCRIT 41.6 % (42.0-52.0); HEMOGLOBIN 13.2 g/dL (14.0-18.0); IMM GRAN# 0.09 X1000 (0.0-0.04); IMM GRAN% 0.9 % (0.0-0.5); MCH 30.4 PG (27-31); MCHC 31.7 g/dL (33-37); MCV 95.9 FL (81-99); MONO# 2.06 X1000 (0.11-0.59); MONO% 20.6 % (1.7-9.3); NEUT# 6.13 X1000 (1.4-6.5); NEUT% 61.2 % (42.2-75.2); PLT 284 X1000 (130-400); RBC 4.34 XMIL (4.7-6.1); WBC 10.01 X1000 (4.8-10.8)
[2019-01-19 06:33] LABS: AGAP 8; BUN 13 mg/dL (8-22); CALCIUM 8.4 mg/dL (8.8-10.2); CHLORIDE 105 mmol/L (98-107); COSMO 281; CREATININE 0.6 mg/dL (0.7-1.2); ESTIMATED GFR > 60; GLUCOSE 124 mg/dL (70-104); POTASSIUM 3.6 mmol/L (3.5-5.1); SODIUM 140 mmol/L (136-145); TCO2 27 mmol/L (25-35)
[2019-01-19 06:53] LABS: BANDS 4 % (0-1); LYMPHS 13 % (21-51); MONO 12 % (1-9); SEGS 68 % (42-75)
[2019-01-19] MEDS: PERIDEX MT SCH ×2 (08:21→20:58)
[2019-01-19] MEDS: PROTONIX IV SCH (16:17)
--- NOTE | 2019-01-19 18:52 | PROGRESS NOTE ---
DATE: 01/19/2019 SUBJECTIVE: Patient has no major complaints. OBJECTIVE: Vital Signs: Blood pressure 118/72, heart rate of 108, respiratory rate of 16, temperature 99.5 degrees, 94% on 2 L. Cardiovascular: Regular rate and rhythm. Pulmonary: Bilateral breath sounds. Clear to auscultation. GI: Soft, nontender. He has a binder in place. Bowel sounds are not present. NG is in place. His output from the NG tube has been fairly copious still, it looks like a liter on 01/18/2019, at 1.29, so still a lot of output unfortunately. LABORATORY DATA: White count is 10, hemoglobin and hematocrit 13 and 41, platelets 284,000. Basic was normal. PROBLEM LIST: Partial small bowel obstruction. Nasogastric is in place. Surgery is following. He is on fluids. Pain control will be a slow process most likely. Will continue to follow closely. cc: Brendan Wilks MD
--- NOTE | 2019-01-19 20:09 | GENERAL SURGERY PROGRESS NOTE ---
DATE: 01/19/2019 SUBJECTIVE: The patient denies abdominal pain, nausea, or vomiting. He has not passed gas today. OBJECTIVE: Vital Signs: He is afebrile. His vital signs are stable. General: He is awake, alert, oriented x3. No acute distress. NG tube output 1290 mL; it is bilious. Urine output 1310 mL. Cardiovascular: Regular rate and rhythm. Respiratory: Bilateral breath sounds. No work of breathing. Gastrointestinal: Soft, nondistended, appropriately tender. Incisional dressing is clean. He has hypoactive bowel sounds. LABORATORY DATA: CBC and metabolic profile reviewed and unremarkable. ASSESSMENT AND PLAN: A 58-year-old male postoperative day 2 exploratory laparotomy with lysis of adhesions, umbilical hernia repair, and appendectomy. We are awaiting return of bowel function. We will keep his nasogastric tube to low wall suction. He is on Lovenox for deep vein thrombosis prophylaxis. We will keep his intravenous fluids at normal saline 125 an hour. cc: Sherwin Hsu MD
[2019-01-19] MEDS: ZOFRAN IV PRN (20:56)
[2019-01-19] MEDS: LOVENOX SUBQ SCH (20:58)
[2019-01-19] MEDS ORDERED: TYLENOL PR PRN (21:16)
[2019-01-19] MEDS ORDERED: LASIX IV ONE (22:57)
[2019-01-19] MEDS ORDERED: LANOXIN IV ONE (22:58)
--- NOTE | 2019-01-19 23:39 | EKG Report ---
Test Performed on : 01/19/2019 10:47:48 PM Test Reason : tachycardia Blood Pressure : / mmHG Vent. Rate : 126 BPM Atrial Rate : 126 BPM P-R Int : 128 ms QRS Dur : 072 ms QT Int : 318 ms P-R-T Axes : 065 035 073 degrees QTc Int : 460 ms Sinus tachycardia. Possible Left atrial enlargement Nonspecific T wave abnormality Abnormal ECG No previous ECGs available Confirmed by Erlin Yi MD ([id number]) on 01/23/2019 12:03:56 PM
[2019-01-20] MEDS ORDERED: LOPRESSOR IV ONE (02:10)
[2019-01-20 06:00] LABS: EOS% 0.2 % (0.0-10.0); HEMATOCRIT 41.8 % (42.0-52.0); HEMOGLOBIN 13.4 g/dL (14.0-18.0); LYMPH% 7.5 % (20.5-51.1); MCH 30.7 PG (27-31); MCHC 32.1 g/dL (33-37); MCV 95.9 FL (81-99); MONO% 12.8 % (1.7-9.3); NEUT% 78.8 % (42.2-75.2); PLT 313 X1000 (130-400); RBC 4.36 XMIL (4.7-6.1); WBC 17.28 X1000 (4.8-10.8)
[2019-01-20 06:01] LABS: BASO# 0.02 X1000 (0.0-0.2); BASO% 0.1 % (0.0-0.8); EOS# 0.04 X1000 (0.0-0.7); IMM GRAN% 0.6 % (0.0-0.5); MONO# 2.22 X1000 (0.11-0.59)
[2019-01-20] MEDS ORDERED: LASIX IV ONE ×2 (06:09→08:36)
[2019-01-20 06:22] LABS: AGAP 12; BUN 10 mg/dL (8-22); CALCIUM 8.2 mg/dL (8.8-10.2); CHLORIDE 101 mmol/L (98-107); COSMO 282; CREATININE 0.7 mg/dL (0.7-1.2); ESTIMATED GFR > 60; GLUCOSE 138 mg/dL (70-104); MAGNESIUM 1.7 mg/dL (1.5-2.7); POTASSIUM 3.3 mmol/L (3.5-5.1); SODIUM 141 mmol/L (136-145); TCO2 28 mmol/L (25-35)
--- NOTE | 2019-01-20 06:40 | Diag Imaging Result Doc PS360 ---
EXAM: CHEST-PORTABLE HISTORY: dyspnea TECHNIQUE: Portable chest single view COMPARISON: 01/19/2019 FINDINGS: Poor inspiratory effort. Mild pulmonary edema on the current exam. There is bilateral basilar atelectasis versus infiltrates. No cardiomegaly. Nasogastric tube in good position. IMPRESSION: Development of pulmonary edema. Electronically signed by Josiah Adkins 01/20/2019 6:38 AM
--- NOTE | 2019-01-20 06:49 | Diag Imaging Result Doc PS360 ---
EXAM: CHEST-PORTABLE HISTORY: hypoxia TECHNIQUE: Portable chest single view COMPARISON: 01/13/2019 FINDINGS: A nasogastric tube in good position overlying the esophagus and stomach. There are infiltrates and atelectasis in the left lung base. No cardiomegaly. IMPRESSION: Left basilar infiltrates and atelectasis. Electronically signed by Josiah Adkins 01/20/2019 6:46 AM
[2019-01-20] MEDS ORDERED: XOPENEX NEB INH ONE (08:37)
[2019-01-20] MEDS ORDERED: ATROVENT NEB INH ONE (08:37)
[2019-01-20] MEDS ORDERED: SOLU-MEDROL IV ONE (08:37)
[2019-01-20 08:43] LABS: ALLEN TEST YES; BE 6.5 mmoll (-3.0-3.0); BLOOD TYPE ARTERIAL; HCO3-(ACT) 29.8 mmoll (20.0-26.0); METHB 1.3 % (0.0-1.5); O2(CT) 19.5 mL/dL (15.0-23.0); O2HB 90.6 % (95.0-99.0); PCO2(98.6) 47 mmHg (35-45); PO2(98.6) 60 mmHg (60-100); SAMPLE BLOOD; SAO2 93.8 % (95.0-100.0); THB 15.3 g/dL (11.5-17.4); pH(98.6) 7.44 (7.35-7.45)
[2019-01-20 08:44] LABS: MODALITY PRB
[2019-01-20] MEDS: DILAUDID IV PRN (08:44)
[2019-01-20] MEDS ORDERED: VANCOMYCIN IV PER PHARMACY MISC SCH (08:45)
[2019-01-20] MEDS: PERIDEX MT SCH ×2 (08:45→19:59)
[2019-01-20] MEDS ORDERED: NS NEB INH SCH ×2 (08:45→09:15)
[2019-01-20 09:13] LABS: INR 1.03; PROTIME 13.6 Seconds (11.0-16.0)
[2019-01-20 09:14] LABS: PTT 35.9 Seconds (22.3-41.8)
--- NOTE | 2019-01-20 09:28 | GENERAL SURGERY PROGRESS NOTE ---
DATE: 01/20/2019 SUBJECTIVE: The patient reports shortness of breath and cough. The nurses report overnight he has had significant increase in productive cough, tachycardia and hypoxia. Currently his blood cultures have been drawn as well as a sputum culture. He is on a non-rebreather and is being prepared for transfer to the ICU. OBJECTIVE: He had a T-max of 101.7 degrees last night at 9 o'clock. It is 99.6 degrees this morning. Pulse has ranged from 108 to 137 overnight, which is a significant change. Blood pressure is stable. Oxygen saturation 90 to 95%, but increasing oxygen support has been noted. Urine output 2850 mL. NG tube output 800 mL and bilious.General: He is awake and alert. He is oriented x3. No acute distress, but he does appear to be ill. Respiratory: He has coarse bilateral breath sounds. He is somewhat tachypneic. CV: Tachycardic and regular. Gastrointestinal: Soft, nondistended, minimally tender. Incisional dressings clean and dry. LABORATORY: White blood cell count 98170 with a left shift. PH 7.44, pCO2 47, PaO2 60, bicarb 29.8, base excess 6.5, lactate 1.1. Electrolytes reviewed and unremarkable. IMAGING: His chest x-ray last night and this morning reveals developing pulmonary edema and bibasilar atelectasis versus infiltrates. ASSESSMENT AND PLAN: A 58-year-old male postoperative day 3 exploratory laparotomy with lysis of adhesions, umbilical hernia repair and appendectomy. He appears to be having a postoperative ileus and now is likely developing pneumonia and pulmonary edema. We will continue his NG tube and n.p.o. status. I agree with his transfer to the ICU and broadening his antibiotics to vancomycin and cefepime. cc: Sherwin Hsu MD
[2019-01-20 09:33] LABS: AGAP 14; ALBUMIN 3.2 g/dL (3.5-5.0); ALKALINE PHOSPHATASE 94 U/L (32-122); BUN 10 mg/dL (8-22); CALCIUM 8.5 mg/dL (8.8-10.2); CHLORIDE 99 mmol/L (98-107); CK PROFILE 120 U/L (24-204); COSMO 285; CREATININE 0.7 mg/dL (0.7-1.2); ESTIMATED GFR > 60; GLUCOSE 156 mg/dL (70-104); GOT 12 U/L (10-34); GPT 5 U/L (10-44); POTASSIUM 3.3 mmol/L (3.5-5.1); SODIUM 142 mmol/L (136-145); TCO2 29 mmol/L (25-35); TOTAL PROTEIN 6.3 g/dL (6.3-8.3)
[2019-01-20 09:34] LABS: BASO# 0.03 X1000 (0.0-0.2); BASO% 0.2 % (0.0-0.8); EOS# 0.05 X1000 (0.0-0.7); EOS% 0.3 % (0.0-10.0); HEMATOCRIT 46.1 % (42.0-52.0); HEMOGLOBIN 14.9 g/dL (14.0-18.0); IMM GRAN# 0.09 X1000 (0.0-0.04); IMM GRAN% 0.5 % (0.0-0.5); LYMPH% 6.6 % (20.5-51.1); MCH 30.5 PG (27-31); MCHC 32.3 g/dL (33-37); MCV 94.5 FL (81-99); MONO# 1.27 X1000 (0.11-0.59); MPV 9.9 FL (7.4-10.4); NEUT# 15.49 X1000 (1.4-6.5); NEUT% 85.4 % (42.2-75.2); PLT 339 X1000 (130-400); RBC 4.88 XMIL (4.7-6.1); RDW 13.1 % (11.5-14.5); WBC 18.13 X1000 (4.8-10.8)
--- NOTE | 2019-01-20 09:47 | PROGRESS NOTE ---
DATE: 01/20/2019 SUBJECTIVE: Mr. Rodolfo Kiser is a 58-year-old, male, currently not in severely acute distress, just mildly labored breathing earlier. Apparently has been coughing up a significant amount of green-lambert, thick, copious amounts of phlegm. He has developed fever. He has had elevation in his white blood cell count. Chest x-ray only reveals pulmonary edema. He is coarse with crackles and has had increasing requirements of oxygen therapy through the night. Currently on 100% non-rebreather, and he is going to be moved to the ICU. When further questioning the patient, on his history and physical it states that he denies tobacco abuse, but he actually smokes and has been smoking since the age of 14. Smokes less than half pack per day of cigarettes, and for the last year he has had 1-1/2 cigars per day. OBJECTIVE: Vital Signs: Temperature 99.6 degrees, heart rate 137, respiratory rate 22, blood pressure 147/85, O2 saturation 93% on 100% non-rebreather. General: Mr. Rodolfo Kiser is a 58- year-old, male. He is in mild acute distress, but is still able to carry on a conversation without trouble. Cardiovascular: S1, S2. Tachycardic rate and rhythm. No rubs, gallops, murmurs. No lower extremity edema. +2 dorsalis and radial pulses. Negative carotid bruits. Mild JVD. Pulmonary: Coarse throughout with crackles in the bases. Rhonchi requiring 100% non-rebreather. Mild accessory muscle use and work of breathing. GI: Soft, nontender, nondistended. Hypoactive bowel sounds x4. Extremities: Moves all extremities equally. Full range of motion. Neurologic: A and O x3. Follows commands. Sensory is intact. Skin: Warm, dry, intact. Laparotomy incisions are dry and intact. LABORATORY DATA: White blood cells 17,000, hemoglobin 13, hematocrit 41, platelet count 313. Sodium 141, potassium 3.3, BUN 10, creatinine 0.7, glucose 138, calcium 8.2, magnesium is 1.7. IMAGING: He had a chest x-ray around 11 o'clock last night that showed left basilar infiltrates and atelectasis. A chest x-ray at 6 a.m. which shows development of pulmonary edema. Still with bibasilar atelectasis versus infiltrate. NG tube continues to be in good position. Also had an EKG last night, sinus tachycardia. Rate was 126. QTc was 460. ASSESSMENT/PLAN: 1. Acute hypoxemic respiratory failure requiring advancing oxygen requirements. Likely with undiagnosed history of chronic obstructive pulmonary disease with long- standing tobacco abuse since the age of 14. So, he will get steroids. We will do Xopenex and Atrovent due to the tachycardia and Pulmonary has been consulted. He will be moved to the intensive care unit. 2. Possible development of congestive heart failure. We will check a proBNP. He is receiving Lasix. We will get a chest CT as well and an echocardiogram. Will also give him some potassium supplementation as it is down to 3.3, and he is getting Lasix. 3. Likely sepsis secondary to bibasilar pneumonia, probably [id number]. Coughing up copious amounts of quo-brlhd-fgoxil thick phlegm which will be sent for culture. He has been started on vancomycin and cefepime 2 gram intravenous every 12 hours. He will not receive aggressive intravenous fluid hydration, secondary to the pulmonary edema, but currently blood pressure stable despite being tachycardic. 4. Tachycardia. This is likely secondary to infectious process. Last night he received 5 mg of intravenous metoprolol around 2 in the morning and then he also received it looks like 250 mcg of digoxin around 11 or midnight, something like that. Reviewing the vitals, it did not make any difference in his heart rate. 5. Hypokalemia. This is likely caused by Lasix. So, he will get a 1-time dose of 40 mEq intravenously. 6. Hyperglycemia. He will be started on steroids. We will add a hemoglobin A1c to that just to double check to make sure he does not have diabetes. He could end up with more of a significant hyperglycemia since steroids is getting started. 7. Postop day 2 exploratory laparotomy with lysis of adhesions, umbilical hernia repair and appendectomy followed by General Surgery. Dr. Hsu is aware of today's events for transfer to the intensive care unit. 8. He is on nothing by mouth. He was getting intravenous fluids at 125 mL an hour. Right now, he is getting Lasix. Kidney function is normal. If heart function is normal, may need to reconsider resuming fluids again or nutritional support. Still no reports of a passing gas or bowel movement, but states that he had received lately some Sprite last night, and the only orders that I could see is ice chips and sips of water. So, I am not sure about why he received Sprite or that is what he is reporting that he got. 9. Partial small bowel obstruction. Nasogastric tube is in place. He has pain control medications ordered as needed. 10. Tobacco Abuse. Cessation discussed. 11. Deep venous thrombosis prophylaxis. Lovenox. 12. Gastrointestinal prophylaxis. Protonix. CRITICAL CARE TIME: 35 minutes. Dictated by CORIN Arevalo for Brendan Wilks MD cc: CORIN Arevalo MD [facility]
[2019-01-20 09:50] LABS: HEMOGLOBIN A1C 5.5 % (4.8-6.0)
[2019-01-20] MEDS: MAXIPIME 2 GM in NS 100 ML IV SCH ×2 (09:57→21:20)
[2019-01-20 10:16] LABS: BANDS 16 % (0-1); LYMPHS 8 % (21-51); MONO 2 % (1-9); SEGS 74 % (42-75)
[2019-01-20 10:16] LABS: URINE SOURCE CATH
[2019-01-20 10:21] LABS: BILIRUBIN URINE SMALL (NEGATIVE); BLOOD URINE MODERATE (NEGATIVE); COLOR ORANGE; GLUCOSE URINE NEGATIVE (NEGATIVE); KETONE URINE 60 mg/dL (NEGATIVE); LEUKOCYTES URINE NEGATIVE (NEGATIVE); NITRITE URINE NEGATIVE (NEGATIVE); PROTEIN URINE 30 mg/dL (NEGATIVE); SP GRAVITY URINE 1.015; TURBIDITY URINE HAZY (CLEAR); UROBILINOGEN URINE 3 mg/dL (NORMAL)
[2019-01-20 10:26] LABS: UR EPITHELIAL CELLS <10 /HPF (<10); URINE BACTERIA NEGATIVE /HPF; URINE RBC TNTC /HPF (<10); URINE WBC <10 /HPF (<10)
[2019-01-20 10:50] LABS: URINE CRYSTALS NONE SEEN
[2019-01-20] MEDS: POTASSIUM CHLORIDE 20 MEQ/SWI 20 MEQ/100 ML IVPB IV SCH ×2 (11:00→12:50)
[2019-01-20] MEDS: ATROVENT NEB INH SCH ×4 (11:24→23:08)
[2019-01-20] MEDS: XOPENEX NEB INH SCH ×4 (11:24→23:07)
[2019-01-20] MEDS ORDERED: LASIX IV SCH (12:00)
[2019-01-20] MEDS ORDERED: BLISTEX MEDICATED BERRY LIP BALM TOP PRN (13:15)
[2019-01-20] MEDS: NS 1,000 ML IV SCH (13:22)
--- NOTE | 2019-01-20 13:58 | PROGRESS NOTE ---
DATE: 01/20/2019 SUBJECTIVE: The patient developed an acute respiratory distress episode starting yesterday evening. He started coughing, getting more short of breath, tachycardic, increasing O2 requirement. Chest x-ray yesterday evening. This started around 8 p.m. It looks like chest x-ray at that time showed some basilar infiltrates. Other than that, he seemed to have gotten worse this morning. He was tachycardic, short of breath and febrile. He was febrile last night to a level of 101.7. Chest x-ray shows a right lower lobe either atelectasis or effusion or infiltrate. We have placed him on antibiotics, cefepime and also vancomycin. He is now on BiPAP. His breathing is still labored. Cardiovascular tachy. Pulmonary still rhonchi and wheezing. His saturations are about 92% on 100%. He is breathing in the 20s. He is still somewhat tachycardic. PROBLEM LIST: Acute respiratory failure due to possible aspiration versus institutional acquired pneumonia. He is on vancomycin and Zosyn, breathing treatments. Pulmonary is going to evaluate him for need for other measures and possible intubation. I do agree he needs a chest CT, but I do not think he is stable enough right now to go down for one. This also could be some volume overload issues. We will evaluate for CHF. Tachycardia is likely reactive. We will continue to follow. Really since it is a sinus tachycardia, I am not going to institute any beta blockers right now, especially since he has got pulmonary edema. However, if it progresses or becomes an abnormal heart rhythm, then we will need to worry about that. In any case. We will closely follow. Pulmonary has been consulted and Surgery has been consulted and we will continue to monitor. We will keep him on the dry side. He has gotten several doses of Lasix and I am a little concerned about him getting over diuresed but it is fairly likely this is ARDS. We will get his echocardiogram and get a echocardiogram. His proBNP though is normal or low which would suggest that this is likely related to other process. cc: Brendan Wilks MD
--- NOTE | 2019-01-20 14:53 | EKG Report ---
Test Performed on : 01/20/2019 1:24:36 PM Test Reason : EKG Blood Pressure : / mmHG Vent. Rate : 124 BPM Atrial Rate : 124 BPM P-R Int : 128 ms QRS Dur : 082 ms QT Int : 318 ms P-R-T Axes : 064 040 065 degrees QTc Int : 456 ms Sinus tachycardia. Biatrial enlargement Nonspecific T wave abnormality Abnormal ECG When compared with ECG of 19-JAN-2019 22:47, (Unconfirmed) ST no longer depressed in Anterior leads Confirmed by Erlin Yi MD ([id number]) on 01/23/2019 12:05:10 PM
[2019-01-20] MEDS: VANCOMYCIN 2 GM in NS 500 ML IV SCH (15:00)
--- NOTE | 2019-01-20 15:39 | CONSULTATION ---
DATE OF CONSULTATION: 01/20/2019 REQUESTING PROVIDER: Dr. Oli Wilks. REASON FOR CONSULTATION: Respiratory failure. HISTORY OF PRESENT ILLNESS: This is a 58-year-old male with no significant medical history. He presented to the ER with acute generalized abdominal pain, nausea and vomiting on 01/12/2019. Initial workup in the ER revealed small bowel obstruction, constipation, leukocytosis and elevated lipase. He has been admitted for further evaluation and management. He underwent an exploratory laparotomy, lysis of adhesions, appendectomy, and repair of umbilical hernia by Dr. Carpenter on 01/17/2019. Since yesterday afternoon he developed persistent tachycardia. He also developed fever last night with temperature to 101.7 degrees. Early this morning he became severely hypoxic. He had been put on high-flow nasal cannula and partial non- rebreather. Currently, he required BiPAP with FiO2 100%. He appears some lethargic with some mild respiratory distress. [facility] the [facility], he apparently had been coughing up a significant amount of green-lambert, thick acute copious amounts of phlegm. His white blood cell elevated to 18.14 this morning from 10.01 yesterday, and chest x-ray showed development of pulmonary edema. PAST MEDICAL HISTORY: None. PAST SURGICAL HISTORY: None. SOCIAL HISTORY: Per formerly [facility], the patient was a heavy smoker before. He had smoked up to 1 and half packs per day since the age of 15. Currently, he cut down to less than half a pack per day. He has no history of alcohol or illicit drug use. FAMILY HISTORY: Unknown. ALLERGIES: No known drug allergies. REVIEW OF SYSTEMS: Difficult to be obtained. PHYSICAL EXAMINATION: Vital Signs: Temperature 99.6 degrees, blood pressure 147/85, pulse 137, respiratory rate 22, oxygen saturation 93% on BiPAP with FiO2 100%. General: The patient is lying on bed with no acute distress at this time. He has a BiPAP mask on and he tolerates well at this time. HEENT: Atraumatic, normocephalic. Mucosa pink and moist. Trachea midline. Respiratory: Some mild increased work of breathing. Symmetrical excursion. Auscultation revealed mild wheezing bilaterally, and only inspiratory crackles bibasilarly. Cardiovascular: Regular rate and rhythm with murmur noted. Gastrointestinal: Nontender. Having a binder around the abdominal area. Bowel sounds present in all 4 quadrants. Extremities: No pedal edema. No cyanosis. No clubbing. Dorsalis pedis 2+ bilaterally. Neurologic: Alert and oriented x2. Currently difficult to speak with BiPAP mask on. Follow commands. LAB DATA: White blood cells 18.13, hemoglobin 14.9, hematocrit 46.1, platelet count 339. Sodium 142, potassium 3.3, chloride 99, carbon dioxide 29, BUN 10, creatinine 0.7, glucose 156. ProBNP 552. ABG: A pH at 7.44, pCO2 47, PO2 60, HC03 29.8, base excess 6.5 and oxyhemoglobin 90.6. IMAGING DATA: See HPI. ASSESSMENT: This is a 58-year-old male with no significant medical history. He has been admitted since 01/12/2019 with small bowel obstruction, constipation, abdominal pain, leukocytosis and elevated lipase. He underwent exploratory laparotomy, lysis of adhesions, appendectomy, repair of umbilical hernia on 01/17/[address] Carpenter. He developed persistent tachycardia since yesterday afternoon, fever last night, and significant hypoxia since early this morning. 1. Acute hypoxic respiratory failure requiring high oxygen requirements, currently on the BiPAP with oxygen saturation staying low 90s. 2. Acute respiratory distress syndrome vs. acute congestive heart failure. 3. Bibasilar pneumonia. 4. Tobacco abuse. PLAN: 1. Continue BiPAP as needed. We will consider mechanical ventilator if needed. 2. To continue antibiotics, steroid, bronchodilators and diuretics. 3. Follow up with ABG, CBC, BMP, sputum culture, blood culture and CT thorax without contrast. 4. Continue GI and DVT prophylaxis. 5. Further recommendations pending hospital course. Thank you for the courtesy of this consult. Dictated by CORIN Bartlett for Mary Falcon MD cc: CORIN Bartlett MD [facility]
[2019-01-20] MEDS: SODIUM CHLORIDE 0.9% INJ SCH (17:17)
[2019-01-20] MEDS: SOLU-MEDROL IV SCH (17:17)
[2019-01-20] MEDS: PROTONIX IV SCH (17:17)
[2019-01-20] MEDS: LOVENOX SUBQ SCH (19:59)
[2019-01-20] MEDS: LASIX IV SCH (19:59)
[2019-01-21] MEDS: VANCOMYCIN 2 GM in NS 500 ML IV SCH ×2 (01:13→15:03)
[2019-01-21] MEDS: SOLU-MEDROL IV SCH ×3 (01:13→21:34)
[2019-01-21] MEDS: NS 1,000 ML IV SCH (01:42)
[2019-01-21] MEDS: XOPENEX NEB INH SCH ×6 (03:05→23:48)
[2019-01-21] MEDS: ATROVENT NEB INH SCH ×6 (03:05→23:47)
[2019-01-21 04:35] LABS: ALLEN TEST YES; BLOOD TYPE ARTERIAL; HCO3-(ACT) 33.5 mmoll (20.0-26.0); METHB 1.4 % (0.0-1.5); O2(CT) 19.5 mL/dL (15.0-23.0); O2HB 96.8 % (95.0-99.0); PCO2(98.6) 43 mmHg (35-45); PO2(98.6) 207 mmHg (60-100); SAMPLE BLOOD; SAO2 99.9 % (95.0-100.0); pH(98.6) 7.52 (7.35-7.45)
[2019-01-21 04:36] LABS: MODALITY BI PAP
[2019-01-21 04:45] LABS: BASO# 0.06 X1000 (0.0-0.2); BASO% 0.2 % (0.0-0.8); EOS# 0.48 X1000 (0.0-0.7); EOS% 1.7 % (0.0-10.0); HEMATOCRIT 41.9 % (42.0-52.0); HEMOGLOBIN 13.5 g/dL (14.0-18.0); IMM GRAN# 0.56 X1000 (0.0-0.04); IMM GRAN% 1.9 % (0.0-0.5); LYMPH# 1.32 X1000 (1.2-3.4); LYMPH% 4.5 % (20.5-51.1); MCH 30.3 PG (27-31); MCHC 32.2 g/dL (33-37); MCV 94.2 FL (81-99); MONO# 1.54 X1000 (0.11-0.59); MONO% 5.3 % (1.7-9.3); MPV 10.4 FL (7.4-10.4); NEUT# 25.07 X1000 (1.4-6.5); NEUT% 86.4 % (42.2-75.2); PLT 290 X1000 (130-400); RBC 4.45 XMIL (4.7-6.1); RDW 13.1 % (11.5-14.5); WBC 29.03 X1000 (4.8-10.8)
[2019-01-21 04:53] LABS: ALB/GLOB RATIO 0.7; ALBUMIN 2.7 g/dL (3.5-5.0); DIRECT BILIRUBIN 0.8 mg/dL (0.00-0.20); TOTAL BILIRUBIN 2.18 mg/dL (0.20-1.00); TOTAL PROTEIN 6.6 g/dL (6.3-8.3)
[2019-01-21 05:26] LABS: BANDS 6 % (0-1); LYMPHS 2 % (21-51); MONO 4 % (1-9); SEGS 88 % (42-75)
--- NOTE | 2019-01-21 07:47 | GENERAL SURGERY PROGRESS NOTE ---
DATE: 01/21/2019 SUBJECTIVE: The patient says he feels like he is breathing a little better. He denies abdominal pain. He is hungry and interested in eating. However, he says he has not passed gas yet. OBJECTIVE: Vital Signs: T-max 99.7 degrees yesterday, now 98.6, pulse is 97 to 120s overnight, systolic blood pressure stable, O2 saturation 91% to 95%. He is on 80% supplemental oxygen. Urine output 3150 mL. NG tube output 200 mL. General: He is awake, alert, oriented x3. No acute distress. GI: Soft, nontender, nondistended. Hypoactive bowel sounds. Incisional dressing clean and dry. IMAGING AND LABORATORY DATA: White blood cell count 29,000, hemoglobin 13, hematocrit 41, PaO2 is 207. He does not have a basic metabolic profile today. Sputum and blood cultures are pending. No chest x-ray this morning. ASSESSMENT AND PLAN: A 58-year-old male status post exploratory laparotomy with lysis of adhesions, appendectomy, and umbilical hernia repair for small bowel obstruction. Postoperatively, he has persistent ileus, and has developed acute respiratory distress syndrome versus pneumonia. He is on broad-spectrum antibiotics and supplemental oxygen. Given the relatively benign abdominal exam and lower nasogastric tube output, we will start clamp trials for the nasogastric tube today, and sips of clear liquids. cc: Sherwin Hsu MD
[2019-01-21] MEDS: PERIDEX MT SCH ×2 (10:00→20:17)
[2019-01-21] MEDS: LASIX IV SCH ×2 (10:00→20:21)
[2019-01-21] MEDS: MAXIPIME 2 GM in NS 100 ML IV SCH ×2 (10:31→17:40)
--- NOTE | 2019-01-21 13:25 | Diag Imaging Result Doc PS360 ---
CT THORAX W/O CONTRAST - 01/21/2019 INDICATION: resp failure COMPARISON: Prior chest x-ray FINDINGS: There is a nasogastric tube in good position in the stomach. There is severe opacification of the right-sided lobar airways with fluid or mucus material. There is dense multilobar infiltrate all throughout the right lung, with some component of volume loss at the right lung base. There is dense consolidation throughout the right lower lobe and right middle lobe. There is also extensive infiltrate throughout the left lower lobe. The left upper lobe is spared. No mass or adenopathy. Heart size is normal. Upper abdominal images are unremarkable. Bones are intact. IMPRESSION: 1. Dense multilobar pneumonia throughout the right lung. Extensive pneumonia throughout the left lower lobe. 2. Extensive airway opacification involving all the lobar airways on the right, and all the segmental airways at the right lung base. This exam was performed using automated exposure control, adjustment of mA or kV according to patient size, and/or use of iterative reconstruction technique Electronically signed by Elder Heredia 01/21/2019 1:22 PM
--- NOTE | 2019-01-21 14:19 | PROGRESS NOTE ---
DATE: 01/21/2019 SUBJECTIVE: The patient has no major complaints. He is much improved from yesterday. He is breathing, talking in complete sentences, actually talking very forcefully. Yesterday he was just very depressed and puny. OBJECTIVE: Vital signs: Blood pressure 133/82, heart rate of 88, respiratory rate 16, temp 97.2 degrees. Cardiovascular: Regular rate and rhythm. Pulmonary: Bilateral breath sounds. Clear to auscultation. GI: Soft, nontender, nondistended. Bowel sounds are positive. LABORATORY DATA: His white count has jumped up to 29,000, hemoglobin and hematocrit 13 and 41, platelets 290,000. PH 7.52, pCO2 43, PaO2 207. T. bilirubin is down to 2; some of this may have been just indirect. PROBLEM LIST: 1. Multilobar pneumonia. He is on cefepime and vancomycin for the time being. 2. He is on broad spectrum antibiotics but his white count has drastically increased. Clinically he has improved, but it looks like he has pneumonia with developing ARDS. Pulmonary is following and I have consulted Dr. Gutierrez to optimize his medications to give him the best chance that we can to get him through this. 3. Acute respiratory failure. He is much improved. I am not sure if this is related to his diuretics or other things, but we are going to see how he does. In any case, Pulmonary is following. May be wean him down to high-flow O2 at this point. Yesterday I was pretty much convinced he was going to require intubation, but that seems less likely now. 4. Small bowel obstruction with status post lysis of adhesion and appendectomy. He is slowly improving. We will continue treatment and follow. We will see how he does. 5. Disposition. I am going to watch him in the ICU until we know he is stabilizing further although, again, much improved today. cc: Brendan Wilks MD
[2019-01-21 15:03] LABS: AGAP 14; BUN 22 mg/dL (8-22); CALCIUM 9.4 mg/dL (8.8-10.2); CHLORIDE 101 mmol/L (98-107); COSMO 303; CREATININE 0.6 mg/dL (0.7-1.2); ESTIMATED GFR > 60; GLUCOSE 258 mg/dL (70-104); POTASSIUM 3.3 mmol/L (3.5-5.1); SODIUM 146 mmol/L (136-145); TCO2 31 mmol/L (25-35)
[2019-01-21] MEDS: CLINIMIX E 4.25%-5% SOLUTION 1,000 ML IV SCH (15:03)
--- NOTE | 2019-01-21 15:44 | INFECTIOUS DISEASE CONSULT REP ---
DATE: 01/21/2019 CONCLUSION: The patient has an increasing white count. I think it is due mainly to the patient's steroids. The patient does have a bilateral pneumonia which certainly could be contributing to the white blood cell count rise also. Patient appears to have oral candidiasis. RECOMMENDATION: I agree with giving the patient a combination of vancomycin and cefepime. I have increased the cefepime dose to 2 g IV every 8 hours. I am going to order Mycostatin swish and spit out because he has a NG tube down on suction. DISCUSSION: The patient approximately 10 days ago started having abdominal pain. He was admitted to the hospital. He was found to have small bowel obstruction secondary to adhesions and umbilical hernia and an appendectomy. The patient underwent lysis of adhesions, repair of the umbilical hernia, and appendectomy. Postoperatively, the patient's white cells are increasing. It seemed to start when the patient was placed on steroids. Laboratory studies thus far show a CBC with a white count of 29,030, hemoglobin 13.5 and platelet count 290,000. The patient's creatinine is 0.7. GFR is greater than 60. The patient's blood gases show a pH of 7.52, a PO2 of 207 and a pCO2 of 43. The patient's sputum Gram stain showed gram-positive cocci and gram- negative rods. Blood cultures are pending. Liver function studies are normal. CT scan of the chest shows bilateral infiltrates. PAST MEDICAL HISTORY/REVIEW OF SYSTEMS: Eyes and ears: He denies trouble hearing or seeing. Neck: No stiffness. Respiratory: No cough or shortness of breath. Cardiac: No chest pain or palpitations. GI: The patient had an appendectomy and hernia and small bowel obstruction secondary to adhesions. : No dysuria or flank pain. Neurologic: No seizures. No loss of motor or sensory function. PREVIOUS HOSPITALIZATIONS AND OPERATIONS: None. MEDICAL DISEASES: Negative for diabetes mellitus and hypertension. INFECTIOUS DISEASE HISTORY: Negative for pneumonia and UTI. FAMILY HISTORY: Positive for Alzheimer disease, cancer, myocardial infarction, and end-stage renal disease. SOCIAL HISTORY: [place] He is . He shares dwelling with a tank truck engine mechanic who has a dog. The patient smokes cigarettes and drinks alcoholic beverages but does not use illicit drugs. 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 Patient does not take any medications. PHYSICAL EXAMINATION: Temperature earlier was 102, now it is 100, pulse 88, respirations 16, blood pressure 133/82.General: This is a fairly healthy-appearing, middle-aged male. He is in no acute distress. Head, eyes, ears, nose, and throat: He can hear my spoken words and see near objects. He does have a white coating on his tongue. Neck: No meningismus. Lungs: Clear to auscultation. Cardiovascular: Regular heart rate. Abdomen: Was soft. It was not tender to light palpation. There was a large dressing on the abdomen. The dressing was intact. Neurologic: Patient is alert. He can move his extremities. There is no tremor. His memory regarding his medical history was intact. According to him, he had no prior medical illnesses. Integument: No rash noted. Thank you for the consult. cc: Royce Gutierrez MD MTDD
[2019-01-21] MEDS: MYCOSTATIN SUSP PO SCH ×2 (17:40→20:17)
[2019-01-21] MEDS: SODIUM CHLORIDE 0.9% INJ SCH (17:40)
[2019-01-21] MEDS: PROTONIX IV SCH (17:40)
[2019-01-21] MEDS: DILAUDID IV PRN (17:41)
[2019-01-21] MEDS: LOVENOX SUBQ SCH (20:20)
--- NOTE | 2019-01-21 22:04 | ECHO REPORT ---
ORDER DATE: 01/20/2019 SUMMARY: 1. Technically difficult study. There were no true parasternal views available. 2. Moderate sclerosis of aortic valve demonstrated. Doppler of aortic valve is difficult. Mitral and tricuspid valves are without gross structural abnormality. Pulmonic valve is not well demonstrated. 3. Mild to moderate concentric left hypertrophy is demonstrated. Estimated left ejection fraction appears to be at least 65%. No obvious wall motion abnormality can be appreciated. Left atrium, right atrium, right ventricle are grossly normal in size. 4. No pericardial effusion. 5. Appearance of inferior vena cava suggests normal central venous pressure. cc: MD Loli Raygoza CRNP
[2019-01-22] MEDS: CLINIMIX E 4.25%-5% SOLUTION 1,000 ML IV SCH ×4 (00:05→20:04)
[2019-01-22] MEDS: MAXIPIME 2 GM in NS 100 ML IV SCH ×2 (01:00→10:04)
[2019-01-22] MEDS: VANCOMYCIN 2 GM in NS 500 ML IV SCH ×2 (01:21→13:46)
[2019-01-22] MEDS: XOPENEX NEB INH SCH ×6 (03:44→23:38)
[2019-01-22] MEDS: ATROVENT NEB INH SCH ×6 (03:44→23:38)
[2019-01-22 04:44] LABS: ALLEN TEST YES; BE 11.4 mmoll (-3.0-3.0); BLOOD TYPE ARTERIAL; HCO3-(ACT) 33.8 mmoll (20.0-26.0); METHB 0.7 % (0.0-1.5); O2(CT) 19.6 mL/dL (15.0-23.0); O2HB 96.5 % (95.0-99.0); PO2(98.6) 89 mmHg (60-100); SAMPLE BLOOD; SAO2 100.4 % (95.0-100.0); THB 14.4 g/dL (11.5-17.4); pH(98.6) 7.47 (7.35-7.45)
[2019-01-22 04:45] LABS: MODALITY HIGH FLOW NASAL CAN; PCO2(98.6) 51 mmHg (35-45)
[2019-01-22 06:58] LABS: BASO# 0.04 X1000 (0.0-0.2); BASO% 0.1 % (0.0-0.8); EOS# 0.01 X1000 (0.0-0.7); HEMATOCRIT 40.8 % (42.0-52.0); HEMOGLOBIN 13.3 g/dL (14.0-18.0); IMM GRAN# 0.37 X1000 (0.0-0.04); IMM GRAN% 1.1 % (0.0-0.5); LYMPH# 1.29 X1000 (1.2-3.4); LYMPH% 3.9 % (20.5-51.1); MCH 31.2 PG (27-31); MCHC 32.6 g/dL (33-37); MCV 95.8 FL (81-99); MONO# 2.06 X1000 (0.11-0.59); MONO% 6.3 % (1.7-9.3); MPV 10.7 FL (7.4-10.4); NEUT# 29.01 X1000 (1.4-6.5); NEUT% 88.6 % (42.2-75.2); PLT 350 X1000 (130-400); RBC 4.26 XMIL (4.7-6.1); RDW 12.8 % (11.5-14.5); WBC 32.78 X1000 (4.8-10.8)
[2019-01-22 07:08] LABS: AGAP 13; BUN 30 mg/dL (8-22); CALCIUM 9.1 mg/dL (8.8-10.2); CHLORIDE 100 mmol/L (98-107); COSMO 302; CREATININE 0.6 mg/dL (0.7-1.2); ESTIMATED GFR > 60; GLUCOSE 253 mg/dL (70-104); POTASSIUM 3.6 mmol/L (3.5-5.1); SODIUM 144 mmol/L (136-145); TCO2 31 mmol/L (25-35)
[2019-01-22 07:22] LABS: MAGNESIUM 2.2 mg/dL (1.5-2.7); PHOSPHORUS 2.6 mg/dL (2.7-4.5)
[2019-01-22 07:33] LABS: BANDS 1 % (0-1); LYMPHS 4 % (21-51); MONO 7 % (1-9); SEGS 88 % (42-75)
--- NOTE | 2019-01-22 08:12 | INFECTIOUS DISEASE PROGRESS NO ---
DATE: 01/22/2019 PRESENT ILLNESS: The patient has an increasing leukocytosis. I still think it is due to his steroids. However, the patient does have a pneumonia which could be contributing to his leukocytosis. Also, the patient has had extensive surgery and possibly there could be an intra- abdominal focus of infection that could be causing leukocytosis. The patient also has oral candidiasis. MEDICATIONS: The patient is on a combination of vancomycin and cefepime. PHYSICAL EXAMINATION: Vital Signs: Temperature is 98 degrees, pulse 61, respirations 18, blood pressure 130/70. General: This is a somewhat ill-appearing, middle-aged male. He is in no acute distress. He says he feels much better today and he wants to eat. Head, Eyes, Ears, Nose, and Throat: He has a white coating on his tongue. Neck: No pain with movement of his neck. Lungs: Clear to auscultation. Cardiovascular: Regular heart rate with a systolic murmur. Abdomen: Soft. It was not tender to light palpation. The patient's dressing is intact. I did not hear any bowel sounds. Neurologic: The patient is alert. He can move his extremities. There is no tremor. Integument: No rash noted. Extremities: No IV site is erythematous or purulent. LAB AND X-RAY: The patient's CBC shows a white count of 32,780, hemoglobin 13.3, and platelet count 350,000. Creatinine is 0.6. GFR is greater than 60. Blood gases show a pH of 7.47, a PO2 of 89, and a pCO2 of 51. The bilirubin is 2.18. Urinalysis is negative for white cells and bacteria. Sputum culture is pending. Blood culture is negative. ASSESSMENT AND PLAN: The patient is status post surgery consisting of lysis of adhesions which caused the patient have a small bowel obstruction, an umbilical hernia repair because the patient had a hernia, and, finally, the patient has had an appendectomy because chronic appendicitis was found at surgery. My plan would be to continue with his current antibiotics. I would be anxious to see what the patient's sputum grows in case the patient has an organism growing from his sputum that is not covered by the current antibiotics. Also, I want to talk with Dr. Carpenter about doing a CAT scan of the abdomen and pelvis to see if there is any evidence of an intra-abdominal infection. For the patient's oral candidiasis, I am going to continue with the nystatin, having the patient swish it around in his mouth but spit it out. COMORBIDITIES: He is a cigarette smoker and he drinks alcoholic beverages. Also, he unfortunately had a bowel obstruction secondary to adhesions. Also, he unfortunately had an abdominal hernia and he also had chronic appendicitis. cc: Royce Gutierrez MD
[2019-01-22] MEDS: MYCOSTATIN SUSP PO SCH ×4 (08:41→20:04)
[2019-01-22] MEDS: PERIDEX MT SCH ×2 (08:41→20:04)
[2019-01-22] MEDS: SOLU-MEDROL IV SCH (10:03)
--- NOTE | 2019-01-22 10:16 | GENERAL SURGERY PROGRESS NOTE ---
DATE: 01/22/2019 SUBJECTIVE: Mr. Kiser is now 5 days after his laparotomy with lysis of adhesions and appendectomy. OBJECTIVE: His abdomen is soft and nontender. His wound is fine. He has been transferred to the intensive care unit due to his pulmonary status. He denies any flatus currently. His NG tube has put out only 120 CC since yesterday. ASSESSMENT AND PLAN: I think his abdomen is benign. I do not think it is the source of his leukocytosis. If CT is ordered, they could use his NG tube to place the contrast. After that, hopefully we can get his NG tube out. cc: Ozzy Carpenter MD
--- NOTE | 2019-01-22 12:26 | PROGRESS NOTE ---
DATE: 01/22/2019 SUBJECTIVE: The patient has no major complaints except he is not eating, but he still looks well. OBJECTIVE: Blood pressure 142/84, heart rate of 56, and respiratory rate of 19. He is afebrile.Cardiovascular: Regular rate and rhythm. Pulmonary: Bilateral breath sounds. Clear to auscultation. GI: Soft, nontender, and nondistended. He has some positive bowel sounds. Extremities: No clubbing or cyanosis. Skin: His incision looks clean, dry, and intact. He is overall looking okay. PROBLEM LIST: 1. Multilobar pneumonia, but it is growing out MRSA presumptively so we will continue vancomycin. I have discussed with Dr. Gutierrez. He did not have the information earlier so we are going to cancel CT for now. It looks like it has already been canceled. Discontinue his NG tube, and let him have clears. We will go from there. 2. Respiratory failure is slowly improving. He has a very dense multilobar pneumonia, and will likely take an early ARDS so it will likely take awhile to get that better. 3. We will see how he does. I am going to continue the Clinimix for the time being. DISPOSITION: Pending his clinical status, but he is improving. We are going to start work on ambulating. I am going to cut down on his steroids, and we will see how he does. Hopefully, discharge in the next couple of days assuming he continues to improve. cc: Brendan Wilks MD
[2019-01-22] MEDS: PROTONIX IV SCH (16:22)
[2019-01-22] MEDS: SODIUM CHLORIDE 0.9% INJ SCH (16:22)
[2019-01-22] MEDS: LOVENOX SUBQ SCH (20:04)
[2019-01-22] MEDS ORDERED: DULCOLAX PR SCH (21:00)
[2019-01-22] MEDS: DILAUDID IV PRN (23:40)
[2019-01-23] MEDS: VANCOMYCIN 2 GM in NS 500 ML IV SCH ×3 (00:57→13:43)
[2019-01-23] MEDS: ATROVENT NEB INH SCH ×6 (03:42→23:29)
[2019-01-23] MEDS: XOPENEX NEB INH SCH ×6 (03:42→23:29)
[2019-01-23 04:43] LABS: ALLEN TEST YES; BE 9.1 mmoll (-3.0-3.0); BLOOD TYPE ARTERIAL; METHB 0.9 % (0.0-1.5); O2HB 95.1 % (95.0-99.0); PO2(98.6) 77 mmHg (60-100); SAMPLE BLOOD; SAO2 97.9 % (95.0-100.0); THB 11.2 g/dL (11.5-17.4); pH(98.6) 7.44 (7.35-7.45)
[2019-01-23 04:44] LABS: MODALITY VENTILATOR; PCO2(98.6) 51 mmHg (35-45)
[2019-01-23] MEDS: CLINIMIX E 4.25%-5% SOLUTION 1,000 ML IV SCH ×2 (06:00→08:38)
--- NOTE | 2019-01-23 06:54 | INFECTIOUS DISEASE PROGRESS NO ---
DATE: 01/23/2019 PRESENT ILLNESS: The patient had increasing leukocytosis. I think in part it was due to steroids, but also the patient has methicillin-resistant Staph aureus pneumonia. The patient also has oral candidiasis. MEDICATIONS: The patient is on vancomycin and Mycostatin swish and spit out. PHYSICAL EXAMINATION: Vital Signs: Temperature is 97.5 degrees, pulse 56, respirations 14, blood pressure 107/62. General: This is a somewhat ill-appearing middle-aged male. He is in no acute distress. He is feeling better today. Head, Eyes, Ears, Nose and Throat: The patient still has a white coating on his tongue. There is no drainage from his nose or ears. Neck: The patient does not have any pain when he moves his neck. Lungs: Clear to auscultation. Cardiovascular: Heart rate is regular with a systolic murmur. Abdomen: Soft and not tender to light palpation. The patient's incision is intact. Neurologic: The patient is alert. He can move his extremities. There is no tremor. LAB AND X-RAY: There is no new radiographic study for today at this time. Patient's CBC is pending. The blood gases show a pH of 7.44, a PO2 of 77 and a pCO2 of 51. There is no BMP ordered for today. The patient's sputum is growing out presumptive methicillin-resistant Staph aureus. ASSESSMENT AND PLAN: The patient has methicillin-resistant Staph aureus pneumonia and oral candidiasis. I plan to continue with vancomycin as a single agent. Cefepime has been discontinued. Also, I plan on giving the patient Mycostatin, but instead of having him spit it out, I am going to have Mycostatin swish and swallow because the patient's NG tube is out and the patient is taking liquids well. COMORBIDITIES: The patient is a cigarette smoker. He also drinks alcoholic beverages. The patient had a small bowel obstruction secondary to adhesions. The patient also had an abdominal hernia and also chronic appendicitis. He has undergone lysis of adhesions and he also had repair of his hernia and he also had an appendectomy performed. cc: Royce Gutierrez MD
[2019-01-23 08:17] LABS: AGAP 9; BUN 23 mg/dL (8-22); CALCIUM 8.9 mg/dL (8.8-10.2); CHLORIDE 99 mmol/L (98-107); COSMO 290; CREATININE 0.5 mg/dL (0.7-1.2); ESTIMATED GFR > 60; GLUCOSE 224 mg/dL (70-104); POTASSIUM 3.7 mmol/L (3.5-5.1); SODIUM 140 mmol/L (136-145); TCO2 32 mmol/L (25-35)
[2019-01-23 08:37] LABS: BASO% 0.2 % (0.0-0.8); EOS% 0.2 % (0.0-10.0); HEMATOCRIT 41.5 % (42.0-52.0); LYMPH% 6.7 % (20.5-51.1); MCH 30.4 PG (27-31); MCHC 31.3 g/dL (33-37); MCV 97.2 FL (81-99); MONO% 9.7 % (1.7-9.3); NEUT% 80.8 % (42.2-75.2); PLT 320 X1000 (130-400); RBC 4.27 XMIL (4.7-6.1); RDW 12.8 % (11.5-14.5); WBC 33.94 X1000 (4.8-10.8)
[2019-01-23 08:38] LABS: BASO# 0.08 X1000 (0.0-0.2); EOS# 0.07 X1000 (0.0-0.7); IMM GRAN# 0.82 X1000 (0.0-0.04); IMM GRAN% 2.4 % (0.0-0.5); LYMPH# 2.29 X1000 (1.2-3.4); NEUT# 27.38 X1000 (1.4-6.5)
[2019-01-23] MEDS: PERIDEX MT SCH ×2 (08:45→20:20)
[2019-01-23] MEDS: MYCOSTATIN SUSP PO SCH ×4 (08:46→20:21)
[2019-01-23 08:52] LABS: BANDS 2 % (0-1); LYMPHS 8 % (21-51); MONO 10 % (1-9); SEGS 74 % (42-75)
[2019-01-23] MEDS ORDERED: SOLU-MEDROL IV SCH (09:00)
--- NOTE | 2019-01-23 10:52 | PROGRESS NOTE ---
DATE: 01/23/2019 SUBJECTIVE: Patient has no major complaints. He is eating a little bit. Some flatus but no bowel movement. OBJECTIVE: Vitals: Blood pressure is 132/78, heart rate 61, respiratory rate 20, temperature was 97.8 degrees. He has 100% on 50%. Cardiovascular: Regular rate and rhythm. Pulmonary: Bilateral breath sounds. Clear to auscultation GI: Soft, nontender, nondistended. Bowel sounds were positive. Extremities: No clubbing or cyanosis. Lymphatic: No peripheral edema. Neurological: Nonfocal. LABORATORY DATA: His white count up to 33, hemoglobin 13 and hematocrit 41, platelets 320,000. pH 7.44, pCO2 51, PO2 77, BUN 23, creatinine 0.5. Rest of the data is okay. IMAGING: There is no x-rays today. CT yesterday showed dense multilobar pneumonia throughout the right lung and extensive pneumonia throughout the left lower lobe and airway opacification involving all the lobar airways on the right. PROBLEM LIST: 1. Methicillin-resistant Staphylococcus aureus (MRSA) pneumonia. He is currently on vancomycin and we will continue treatment. Dr. Gutierrez is following. We will add Mucomyst. He needs to do some breathing exercises because I think he may have some plugging that may be kind of slowing down his recovery. Will follow. 2. Acute respiratory failure, likely just due to pneumonia. I do not think he is necessarily overloaded. 3. Protein calorie malnutrition. We will continue treatment and follow. I am going to stop the Clinimix now that he is eating and we will continue to monitor. DISPOSITION: I think he is improving. I think if we can get him on a little less oxygen, we should be able to move him out of the unit to step-down, but we will see how things look. cc: Brendan Wilks MD
[2019-01-23] MEDS: MUCOMYST 20% INH SCH ×2 (16:06→19:21)
--- NOTE | 2019-01-23 16:29 | GENERAL SURGERY PROGRESS NOTE ---
DATE: 01/23/2019 Mr. Kiser is afebrile. Hemodynamics are good. He has passed some flatus. His abdomen is soft and appropriately tender. His NG tube is now out, and he was started on clear liquids. The plan is to advance his diet as he can tolerate. We will try some full liquids tomorrow. cc: Ozzy Carpenter MD
[2019-01-23] MEDS: DULCOLAX PR SCH (20:20)
[2019-01-23] MEDS: LOVENOX SUBQ SCH (20:20)
[2019-01-23] MEDS: DILAUDID IV PRN (20:43)
[2019-01-24] MEDS: VANCOMYCIN 2 GM in NS 500 ML IV SCH (01:15)
[2019-01-24] MEDS: ATROVENT NEB INH SCH ×6 (03:35→23:24)
[2019-01-24] MEDS: XOPENEX NEB INH SCH ×6 (03:35→23:24)
[2019-01-24 04:17] LABS: BLOOD TYPE ARTERIAL; SAMPLE BLOOD
[2019-01-24 04:33] LABS: ALLEN TEST YES; BE 9.5 mmoll (-3.0-3.0); HCO3-(ACT) 32.2 mmoll (20.0-26.0); METHB 0.7 % (0.0-1.5); O2(CT) 15.8 mL/dL (15.0-23.0); O2HB 90.1 % (95.0-99.0); PCO2(98.6) 46 mmHg (35-45); PO2(98.6) 55 mmHg (60-100); SAO2 92.8 % (95.0-100.0); THB 12.5 g/dL (11.5-17.4); pH(98.6) 7.48 (7.35-7.45)
[2019-01-24 04:34] LABS: MODALITY HIGH FLOW NASAL CAN
[2019-01-24 04:36] LABS: AGAP 9; BUN 15 mg/dL (8-22); CALCIUM 8.4 mg/dL (8.8-10.2); CHLORIDE 94 mmol/L (98-107); COSMO 272; CREATININE 0.6 mg/dL (0.7-1.2); ESTIMATED GFR > 60; GLUCOSE 182 mg/dL (70-104); POTASSIUM 3.5 mmol/L (3.5-5.1); SODIUM 133 mmol/L (136-145); TCO2 30 mmol/L (25-35)
[2019-01-24 04:53] LABS: HEMATOCRIT 37.7 % (42.0-52.0); HEMOGLOBIN 12.2 g/dL (14.0-18.0); MCH 30.7 PG (27-31); MCHC 32.4 g/dL (33-37); MPV 10.2 FL (7.4-10.4); PLT 306 X1000 (130-400); RBC 3.97 XMIL (4.7-6.1); RDW 12.4 % (11.5-14.5); WBC 26.83 X1000 (4.8-10.8)
[2019-01-24 04:54] LABS: BASO# 0.05 X1000 (0.0-0.2); BASO% 0.2 % (0.0-0.8); EOS# 0.09 X1000 (0.0-0.7); EOS% 0.3 % (0.0-10.0); IMM GRAN% 2.6 % (0.0-0.5); LYMPH# 2.55 X1000 (1.2-3.4); LYMPH% 9.5 % (20.5-51.1); MONO# 2.51 X1000 (0.11-0.59); MONO% 9.4 % (1.7-9.3); NEUT# 20.93 X1000 (1.4-6.5)
[2019-01-24 05:07] LABS: MAGNESIUM 1.9 mg/dL (1.5-2.7); PHOSPHORUS 2.4 mg/dL (2.7-4.5)
[2019-01-24] MEDS: PRILOSEC PO SCH ×2 (05:52→07:15)
--- NOTE | 2019-01-24 06:45 | Diag Imaging Result Doc PS360 ---
CHEST-1 VIEW - 01/24/2019 INDICATION: SOB COMPARISON: 01/20/2019 FINDINGS: The nasogastric tube has been removed. There is little change in the severe consolidation at the right lung base. No large pleural effusion. Stable significant infiltrate throughout the right upper lobe and left lower lobe. The left upper lobe remains clear. IMPRESSION: No change from prior. Electronically signed by Elder Heredia 01/24/2019 6:43 AM
[2019-01-24 06:57] LABS: EOS 1 % (1-10); LYMPHS 15 % (21-51); MONO 10 % (1-9); SEGS 74 % (42-75)
[2019-01-24] MEDS: MUCOMYST 20% INH SCH ×3 (08:25→19:49)
[2019-01-24] MEDS: MYCOSTATIN SUSP PO SCH ×4 (08:47→20:20)
[2019-01-24] MEDS: PERIDEX MT SCH ×2 (08:47→20:20)
[2019-01-24] MEDS: DULCOLAX PR SCH ×2 (09:19→20:17)
[2019-01-24] MEDS ORDERED: SODIUM PHOSPHATE 40 MEQ in NS 250 ML IV ONE (09:52)
[2019-01-24] MEDS: ZYVOX 600 MG/D5W 600 MG/300 ML IVPB IV SCH ×2 (10:30→21:00)
--- NOTE | 2019-01-24 10:37 | PROGRESS NOTE ---
DATE: 01/24/2019 SUBJECTIVE: The patient developed respiratory failure overnight. He had a large bowel movement this morning, and then apparently went into respiratory distress. He is on BiPAP, and stable breathing. OBJECTIVE: Vital Signs: Blood pressure 129/86, heart rate 66, respiratory rate of 15, temperature 98.6 degrees, saturating 100% on BiPAP. Cardiovascular: Regular rate and rhythm. Pulmonary: Bilateral breath sounds. Diminished. Absent at the right base. IMAGING AND LABORATORY DATA: White count 26, hemoglobin and hematocrit 12 and 37, platelets 306,000. PH 7.48, pCO2 of 46, PO2 of 55. Basic showed a low phosphorus of 2.4. Chest x-ray to me is pretty much frida out, except for the right upper lobe, and it may be a fusion or infiltrate, or I think also possibly bronchial plugging or mucous plugging, and he did not really have a lot of effusion on his CT, which was done on 01/21/2019, about 3 days ago. It looks like almost pure consolidation. PROBLEM LIST: 1. Acute respiratory failure secondary to pneumonia, most likely methicillin-resistant staphylococcus aureus pneumonia. He is on vancomycin. Dr. Gutierrez is following and considering repeating his chest CT, which I think is reasonable, although I do not know how stable he is to go down for that. I think additionally at this point, a bronchoscopy would be indicated. I will discuss with Dr. Falcon because I am not sure if he is not having some mucus plugging related to his pneumonia, so will see how things go. 2. Multilobar pneumonia, methicillin-resistant staphylococcus aureus. He is on vancomycin. Will await further recommendations. 3. Severe protein-calorie malnutrition. He is on Clinimix, and will continue to follow. 4. Hypophosphatemia. We will continue phosphate supplement. 5. Small bowel obstruction, chronic appendicitis, status post exploratory laparotomy, appendectomy. Diet is being advanced. 6. Disposition. Plan will be to go home once he is stabilized, but his respiratory failure is still a major issue, so we will continue to follow. cc: Brendan Wilks MD
[2019-01-24] MEDS: DILAUDID IV PRN (14:40)
--- NOTE | 2019-01-24 15:04 | Diag Imaging Result Doc PS360 ---
EXAM: CT ANGIOGRM PULMONARY ARTERIES INDICATION: chest pain TECHNIQUE: This exam was performed using automated exposure control, adjustment of mA or kV according to patient size, and/or use of iterative reconstruction technique. Thin section axial images and coronal MIPS were obtained. COMPARISON: CT chest without contrast dated 01/21/2019 FINDINGS: There is no evidence of pulmonary embolism. There is mild aneurysmal dilation of the ascending aorta. It measures up to 4 cm in diameter. There is no evidence of aortic dissection. Multilobar pneumonia on the right is again noted. In the right upper lobe and right middle lobe, it has improved slightly. However, there is still dense consolidation and prominent atelectasis due to mucous plugging involving the right lower lobe. It is essentially stable. The left lower lobe infiltrate is again identified. It has actually worsened slightly at the left lung base. There is also probably a component of atelectasis at the left lung base. There is now trace consolidation involving the posterior inferior left upper lobe. There is trace pleural fluid on the right. There is mild pulmonary emphysema with an apical predominance. IMPRESSION: 1.Multilobar pneumonia on the right that has marginally improved but there has been worsening on the left. Please see above discussion. 2.No evidence of pulmonary embolism. 3.Mild aneurysmal dilation of the ascending aorta. Electronically signed by Alexander Thapa 01/24/2019 3:02 PM
--- NOTE | 2019-01-24 15:05 | INFECTIOUS DISEASE PROGRESS NO ---
DATE: 01/24/2019 HISTORY OF PRESENT ILLNESS: The patient has Methicillin-resistant Staph aureus pneumonia. He also has oral candidiasis. Last night, the patient had sudden drop in his O2 saturation. I am concerned that he may have had a pulmonary embolus even though he is anticoagulated. MEDICATIONS: The patient is on vancomycin and Mycostatin. PHYSICAL EXAMINATION: Vital Signs: Temperature is 98.6, pulse 66, respirations 15, blood pressure 129/86. General: This is an ill-appearing middle-age male. He has BiPAP mask on now, and he does seem to be somewhat dyspneic. Head/eyes/ears/nose/throat: He can hear my spoken words and see near objects. I do not see any white patches on his tongue. He is wearing a BiPAP mask. Neck: No pain with movement. Lungs: Clear to auscultation. Cardiovascular: Heart rate is regular. Abdomen: Soft and nontender to light palpation. The patient's incision is intact. Neurologic: The patient is alert. He can move his extremities. There is no tremors. LAB AND X-RAY: CBC today shows a white count of 26,830, hemoglobin 12.2 and platelet count 306,000. Blood gases show pH 7.48, pO2 55, pCO2 46. Creatinine is 0.6. GFR is greater than 60. Sputum culture grew Methicillin-resistant Staph aureus. Chest x-ray shows bilateral infiltrates which are worse on the right side. ASSESSMENT AND PLAN: The patient has Methicillin-resistant Staph aureus pneumonia. I am concerned that he may have had a pulmonary embolism and due to the fact how his respiratory status deteriorated last night. The patient also has oral candidiasis. I think it would be reasonable to do a pulmonary angiogram; and if it is done, I would suggest switching the patient from vancomycin to Zyvox for a few days in order to avoid renal toxicity with vancomycin and IV contrast. COMORBIDITIES: He is a cigarette smoker. He also drinks alcoholic beverages. He is status post surgery for small bowel obstruction secondary to adhesions, surgery for an abdominal hernia and appendectomy for chronic appendicitis. The patient underwent lysis of adhesions, repair of the hernia and an appendectomy. cc: Royce Gutierrez MD
--- NOTE | 2019-01-24 19:40 | GENERAL SURGERY PROGRESS NOTE ---
DATE: 01/24/2019 TIME: 5:55 Mr. Kiser is tolerating his liquids. His bowels have moved today. He continues to pass flatus. PLAN: The plan will be to advance him to solid food. Is certainly fine from me to get him up in a chair and mobilize him as he can tolerate from his pulmonary standpoint. cc: Ozzy Carpenter MD
[2019-01-24] MEDS: LOVENOX SUBQ SCH (20:20)
[2019-01-25] MEDS: ATROVENT NEB INH SCH ×6 (03:26→23:29)
[2019-01-25] MEDS: XOPENEX NEB INH SCH ×6 (03:26→23:29)
[2019-01-25 04:46] LABS: ALLEN TEST YES; BE 11.3 mmoll (-3.0-3.0); BLOOD TYPE ARTERIAL; HCO3-(ACT) 33.7 mmoll (20.0-26.0); METHB 0.7 % (0.0-1.5); O2(CT) 17.5 mL/dL (15.0-23.0); O2HB 94.9 % (95.0-99.0); PCO2(98.6) 49 mmHg (35-45); PO2(98.6) 73 mmHg (60-100); SAMPLE BLOOD; SAO2 97.1 % (95.0-100.0); THB 13.1 g/dL (11.5-17.4); pH(98.6) 7.48 (7.35-7.45)
[2019-01-25 04:47] LABS: MODALITY HIGH FLOW NASAL CAN
[2019-01-25 05:38] LABS: MAGNESIUM 1.8 mg/dL (1.5-2.7); PHOSPHORUS 2.7 mg/dL (2.7-4.5)
[2019-01-25 05:39] LABS: BASO% 0.3 % (0.0-0.8); EOS# 0.17 X1000 (0.0-0.7); EOS% 0.6 % (0.0-10.0); HEMATOCRIT 37.8 % (42.0-52.0); HEMOGLOBIN 12.4 g/dL (14.0-18.0); IMM GRAN% 4.5 % (0.0-0.5); LYMPH# 2.39 X1000 (1.2-3.4); LYMPH% 8.2 % (20.5-51.1); MCH 30.8 PG (27-31); MCHC 32.8 g/dL (33-37); MCV 93.8 FL (81-99); MONO# 2.41 X1000 (0.11-0.59); MONO% 8.3 % (1.7-9.3); MPV 10.4 FL (7.4-10.4); NEUT# 22.77 X1000 (1.4-6.5); NEUT% 78.1 % (42.2-75.2); PLT 322 X1000 (130-400); RBC 4.03 XMIL (4.7-6.1); RDW 12.1 % (11.5-14.5); WBC 29.14 X1000 (4.8-10.8)
[2019-01-25 05:41] LABS: AGAP 11; BUN 12 mg/dL (8-22); CALCIUM 7.7 mg/dL (8.8-10.2); CHLORIDE 95 mmol/L (98-107); COSMO 277; CREATININE 0.5 mg/dL (0.7-1.2); ESTIMATED GFR > 60; GLUCOSE 164 mg/dL (70-104); POTASSIUM 3.5 mmol/L (3.5-5.1); SODIUM 137 mmol/L (136-145); TCO2 31 mmol/L (25-35)
[2019-01-25] MEDS: PRILOSEC PO SCH (06:06)
[2019-01-25 06:33] LABS: BANDS 4 % (0-1); LYMPHS 12 % (21-51); MONO 5 % (1-9); SEGS 78 % (42-75)
--- NOTE | 2019-01-25 07:11 | Diag Imaging Result Doc PS360 ---
EXAM: CHEST-1 VIEW 01/25/2019 HISTORY: SOB TECHNIQUE: AP portable at 0530 COMMENT: The volume of pleural fluid on the right has diminished since 01/24/2019. There continues to be compressive atelectasis in the right base. The left lower lobe is also slightly clearer despite the less optimal inspiration. IMPRESSION: Improved right pleural effusion and left lower lobe pneumonia. Electronically signed by Derian Rasheed 01/25/2019 7:09 AM
[2019-01-25] MEDS: MUCOMYST 20% INH SCH ×3 (08:24→16:27)
--- NOTE | 2019-01-25 09:17 | INFECTIOUS DISEASE PROGRESS NO ---
DATE: 01/25/2019 PRESENT ILLNESS: Patient has methicillin-resistant Staph aureus pneumonia. The patient's pulmonary angiogram did not show any pulmonary emboli. The patient also has oral candidiasis. MEDICATIONS: The patient is on Zyvox and Mycostatin. PHYSICAL EXAMINATION: Vital Signs: Temperature is 98 degrees, pulse 74, respirations 16, blood pressure 119/69. General: This is a somewhat ill-appearing, middle-aged male. He is in no acute distress. HEENT: He can hear my spoken words and see near objects. He still does have a white coating on his tongue. Neck: No pain with movement. Lungs: Clear to auscultation. Cardiovascular: Heart rate is regular with a systolic murmur. Abdomen: Soft and nontender with light palpation. The patient's incision is intact. There is no erythema and no drainage coming from it. Neurologic: The patient is alert. He can move his extremities. There is no tremor. He talks in a coherent fashion. LAB AND X-RAY: Chest x-ray shows improvement in the patient's infiltrates. Sputum culture is growing methicillin-resistant Staph aureus. Pulmonary angiogram did not show pulmonary emboli. CBC shows a white count of 29,140, hemoglobin 12.4, and platelet count 322,000. Arterial blood gases show a pH of 7.48, a PO2 of 73, and a pCO2 of 49. Creatinine is 0.5, GFR is greater than 60. ASSESSMENT AND PLAN: Patient has a methicillin-resistant Staph aureus pneumonia for which I am going to keep the patient on Zyvox. The patient also has oral candidiasis for which I am going to keep the patient on nystatin swish and swallow. COMORBIDITIES: The patient is a cigarette smoker. He also drinks alcoholic beverages. He is status post surgery for small bowel obstruction to adhesions, surgery for an abdominal hernia repair and appendectomy for chronic appendicitis. The patient's surgical procedures were lysis of adhesions, repair of the patient's hernia, and an appendectomy. cc: Royce Gutiererz MD
[2019-01-25] MEDS: PERIDEX MT SCH ×2 (09:45→20:00)
[2019-01-25] MEDS: DULCOLAX PR SCH ×2 (09:45→20:01)
[2019-01-25] MEDS: MYCOSTATIN SUSP PO SCH ×4 (09:45→20:00)
[2019-01-25] MEDS: ZYVOX 600 MG/D5W 600 MG/300 ML IVPB IV SCH ×2 (09:46→22:20)
--- NOTE | 2019-01-25 17:09 | PROGRESS NOTE ---
DATE: 01/25/2019 SUBJECTIVE: He states that he is feeling better. His breathing is doing better. He has remained afebrile. OBJECTIVE: Vital Signs: Temperature 98.0 degrees, pulse 76, respirations 20, blood pressure 134/77. Eyes: Pupils are equal and round. Lungs: Clear in all lung salmon. Cardiovascular: Regular rhythm and rate without murmur or S3. Urine output: 4400 mL. ASSESSMENT AND PLAN: 1. Methicillin-resistant Staphylococcus aureus pneumonia. The patient had a pulmonary angiogram which did not show any emboli. He also has oral candidiasis. He is on Zyvox and Mycostatin. Continue. His chest x-ray from this morning: Improved right pleural effusion and left lower lobe pneumonia. 2. Tolerating his liquids. His bowels have moved. He is passing flatus, so they can advance him to solid food. 3. Severe protein-calorie malnutrition. He is on Clinimix. 4. Hypophosphatemia, which we have supplemented. 5. Small bowel obstruction, chronic appendicitis. Status post exploratory laparotomy and appendectomy and doing better. 6. Acute respiratory failure secondary to pneumonia. Most likely, methicillin-resistant Staphylococcus aureus pneumonia was considered so his breathing is doing better. They repeated a chest CT. Radiographically, he appears to be improving. REVIEW OF HIS ORDERS: I do not see any change. LABORATORY DATA: From this morning, white count still elevated at 29,140, hematocrit is 37, platelet count is 322,000. Sodium 137, potassium 3.5, chloride 95, BUN 12, creatinine 0.5. cc: Lexx Hale MD
--- NOTE | 2019-01-25 19:24 | GENERAL SURGERY PROGRESS NOTE ---
DATE: 01/25/2019 SUBJECTIVE: Mr. Kiser is now 8 days after his laparotomy, lysis of adhesions and appendectomy. He is tolerating solid food. He is passing flatus. OBJECTIVE: His abdominal wound looks good. ASSESSMENT AND PLAN: No new recommendations. I think whenever his lung status is improved that certainly his gastrointestinal tract is such that he could be discharged. cc: Ozzy Carpenter MD
[2019-01-25] MEDS: LACTULOSE PO SCH (20:00)
[2019-01-25] MEDS: LOVENOX SUBQ SCH (20:01)
[2019-01-25] MEDS: DILAUDID IV PRN (22:28)
[2019-01-26] MEDS: XOPENEX NEB INH SCH ×6 (03:32→23:02)
[2019-01-26] MEDS: ATROVENT NEB INH SCH ×6 (03:32→23:01)
[2019-01-26 04:45] LABS: ALLEN TEST YES; BE 11.6 mmoll (-3.0-3.0); BLOOD TYPE ARTERIAL; HCO3-(ACT) 33.9 mmoll (20.0-26.0); PCO2(98.6) 44 mmHg (35-45); PO2(98.6) 59 mmHg (60-100); SAMPLE BLOOD; pH(98.6) 7.52 (7.35-7.45)
[2019-01-26 04:46] LABS: MODALITY ROOM AIR
[2019-01-26] MEDS: PRILOSEC PO SCH (06:26)
--- NOTE | 2019-01-26 06:41 | Diag Imaging Result Doc PS360 ---
CHEST-1 VIEW - 01/26/2019 INDICATION: SOB COMPARISON: 01/25/2019 FINDINGS: There is slight worsening ill-defined airspace opacity in the right lung base concerning for pneumonia. There is been resolution of the small right pleural effusion. Stable hazy infiltrate/pneumonia in the left lung base. Heart size and pulmonary vascularity remain borderline enlarged. IMPRESSION: Mixed changes at the right lung base. Overall little change from prior. Electronically signed by Elder Heredia 01/26/2019 6:39 AM
--- NOTE | 2019-01-26 09:11 | PROGRESS NOTE ---
DATE: 01/26/2019 Mr. Kiser is feeling a lot better. He is eating his breakfast, drinking his coffee. He is breathing comfortably. OBJECTIVE: Vital Signs: He remains afebrile. Temperature 97.8 degrees, pulse 80, respirations 15, blood pressure 143/81. HEENT: Pupils are equal and round. Lungs: Are clear in all lung salmon. Cardiovascular: Regular rhythm and rate without murmur or S3. Abdomen: Is soft. Skin: Is warm and dry. Urine output is 3800 mL. Chest x-ray mixed changes in the right lung base. Overall, little change from prior. Slightly worsening ill-defined air space opacity in the right lung base concerning for pneumonia. There has been resolution of the small right pleural effusion, stable hazy infiltrate, pneumonia left lung base. Heart size, pulmonary vascularity remain borderline enlarged. ASSESSMENT AND PLAN: 1. Methicillin-resistant Staphylococcus aureus pneumonia. The patient had a pulmonary angiogram did not show any emboli. Treating him for oral candidiasis as well. He is on Zyvox, Mycostatin. Improved right pleural effusion, left lower lobe pneumonia. Chest x-ray is stable today. So his medications are linezolid, Zyvox 600 mg IV q.12. 2. Advance his diet. He is on a regular diet, tolerating this well. 3. Severe protein calorie malnutrition on Clinimix. 4. Hypophosphatemia which has been supplemented. 5. Small bowel obstruction, chronic appendicitis, had status post exploratory laparotomy with appendectomy and he is healing well. 6. Acute respiratory failure secondary to pneumonia, likely methicillin-resistant Staphylococcus aureus and this is improved quite a bit. So we will begin physical therapy and occupational therapy. Increase his activity. Review of his lab from yesterday, still had an elevated white count of 29,140. We will check that again tomorrow. We will also check his chemistries again tomorrow. cc: Lexx Hale MD
[2019-01-26] MEDS: MUCOMYST 20% INH SCH ×2 (09:26→15:19)
[2019-01-26] MEDS: DULCOLAX PR SCH ×2 (09:46→20:04)
[2019-01-26] MEDS: LACTULOSE PO SCH ×2 (09:46→20:03)
[2019-01-26] MEDS: MYCOSTATIN SUSP PO SCH ×4 (09:46→20:03)
[2019-01-26] MEDS: PERIDEX MT SCH ×2 (09:46→20:03)
[2019-01-26] MEDS: ZYVOX 600 MG/D5W 600 MG/300 ML IVPB IV SCH ×2 (09:47→21:33)
--- NOTE | 2019-01-26 13:58 | PULMONOLOGY PROGRESS NOTE ---
DATE: 01/26/2019 SUBJECTIVE: The patient is awake and alert. He has a marginal to good cough effort. He denies shortness of breath. OBJECTIVE: Vital Signs: Blood pressure 103/62, heart rate 96, respiratory rate 18, oxygen saturation 92% on 3 L per nasal cannula. HEENT: Pupils are equal and reactive. Oropharynx appears clear. Neck: Neck is supple. Chest: Reveals rhonchi bilaterally. Cardiac exam: S1, S2. Abdomen: Soft with postsurgical dressings in place. Extremities: Without edema. LABORATORIES: No new CBC today. No chemistries today. X-RAYS: Chest x-ray reveals slight increase in infiltrate, right base, with decreased right-sided pleural effusion with stable infiltrates at the left base. IMPRESSION: A 58-year-old with: 1. Acute hypoxemic respiratory failure. 2. Methicillin-resistant Staphylococcus aureus pneumonia with fluctuating infiltrates. 3. Status post abdominal surgery for appendectomy and lysis of adhesions. PLAN: 1. Continue current antibiotic regimen. 2. Continue bronchial hygiene. 3. Wean oxygen as tolerated. 4. Began mobilizing patient. He should be out of the bed at least 2 to 3 times per day. cc: Tanner Robbins MD
[2019-01-26] MEDS ORDERED: NS 500 ML IV ONE (14:46)
--- NOTE | 2019-01-26 14:47 | INFECTIOUS DISEASE PROGRESS NO ---
DATE: 01/26/2019 PRESENT ILLNESS: Patient has methicillin-resistant Staph aureus pneumonia. He also has oral candidiasis. MEDICATIONS: The patient is on Zyvox for his pneumonia and Mycostatin for his oral candidiasis. PHYSICAL EXAMINATION: Vital Signs: Temperature is 97.7 degrees, pulse 96, respirations 18, blood pressure 103/62. General: This is an ill-appearing middle-aged male. He is in no acute distress, however. Head/eyes/ears/nose/throat: He can hear my spoken words and see near objects. He still does have some white coating on his tongue. Neck: No pain with movement. Lungs: Clear to auscultation. Cardiovascular: Heart rate is regular with a systolic murmur. Abdomen: Soft and nontender. The patient's incision is intact. The patient has been able to pass some stool today. Neurologic: Patient is alert. He can ambulate. There is no tremor. LAB AND X-RAY: Chest x-ray shows bibasilar infiltrates. [place] [address], hemoglobin 12.4, and platelet count 322,000. Creatinine is 0.5, GFR is greater than 60. Blood gases show a pH of 7.52, a PO2 of 59 and a pCO2 of 44. ASSESSMENT AND PLAN: The patient has methicillin-resistant Staph aureus pneumonia for which I am going to continue Zyvox. He also has oral candidiasis for which I am going to continue his nystatin swish and swallow. COMORBIDITIES: The patient has the following cigarette. He is a cigarette smoker. He drinks alcoholic beverages. The patient had surgery that consisted of lysis of adhesions for small bowel obstruction, surgical repair of an abdominal hernia, and appendectomy for chronic appendicitis. cc: Royce Gutierrez MD
[2019-01-26] MEDS: NS 1,000 ML IV SCH (16:30)
[2019-01-26] MEDS: LOVENOX SUBQ SCH (20:04)
[2019-01-27] MEDS: NS 1,000 ML IV SCH ×2 (03:23→13:58)
[2019-01-27] MEDS: XOPENEX NEB INH SCH ×6 (03:32→23:00)
[2019-01-27] MEDS: ATROVENT NEB INH SCH ×6 (03:32→22:59)
[2019-01-27 04:43] LABS: ALLEN TEST YES; BE 8.7 mmoll (-3.0-3.0); BLOOD TYPE ARTERIAL; HCO3-(ACT) 31.5 mmoll (20.0-26.0); METHB 1.2 % (0.0-1.5); O2(CT) 16.7 mL/dL (15.0-23.0); O2HB 90.6 % (95.0-99.0); PCO2(98.6) 42 mmHg (35-45); PO2(98.6) 56 mmHg (60-100); SAMPLE BLOOD; SAO2 93.8 % (95.0-100.0); THB 13.1 g/dL (11.5-17.4)
[2019-01-27 04:44] LABS: MODALITY ROOM AIR
[2019-01-27] MEDS: MUCOMYST 20% INH SCH ×4 (05:28→21:46)
[2019-01-27] MEDS: PRILOSEC PO SCH ×2 (05:32→07:29)
[2019-01-27 06:49] LABS: BASO# 0.07 X1000 (0.0-0.2); BASO% 0.4 % (0.0-0.8); EOS# 0.15 X1000 (0.0-0.7); EOS% 0.8 % (0.0-10.0); HEMOGLOBIN 12.2 g/dL (14.0-18.0); IMM GRAN# 1.41 X1000 (0.0-0.04); IMM GRAN% 7.4 % (0.0-0.5); LYMPH# 3.16 X1000 (1.2-3.4); LYMPH% 16.5 % (20.5-51.1); MCH 30.7 PG (27-31); MCV 93.2 FL (81-99); MONO# 1.68 X1000 (0.11-0.59); MONO% 8.8 % (1.7-9.3); MPV 10.7 FL (7.4-10.4); NEUT# 12.63 X1000 (1.4-6.5); NEUT% 66.1 % (42.2-75.2); PLT 392 X1000 (130-400); RBC 3.97 XMIL (4.7-6.1); RDW 12.3 % (11.5-14.5)
[2019-01-27 07:13] LABS: AGAP 5; BUN 11 mg/dL (8-22); CALCIUM 8.2 mg/dL (8.8-10.2); CHLORIDE 96 mmol/L (98-107); COSMO 270; CREATININE 0.6 mg/dL (0.7-1.2); ESTIMATED GFR > 60; GLUCOSE 148 mg/dL (70-104); MAGNESIUM 2.1 mg/dL (1.5-2.7); POTASSIUM 3.3 mmol/L (3.5-5.1); SODIUM 134 mmol/L (136-145); TCO2 33 mmol/L (25-35)
[2019-01-27 07:28] LABS: EOS 2 % (1-10); LYMPHS 24 % (21-51); MONO 4 % (1-9); SEGS 64 % (42-75)
--- NOTE | 2019-01-27 07:52 | Diag Imaging Result Doc PS360 ---
CHEST-1 VIEW - 01/27/2019 INDICATION: SOB COMPARISON: 01/26/2019 FINDINGS: Stable severely low lung volumes. Stable hazy infiltrate in the right lung base. There is more pronounced infiltrate in the left lung base as well. No large pleural effusion. Heart size is normal. IMPRESSION: Bibasilar infiltrates compatible with pneumonia. Electronically signed by Elder Heredia 01/27/2019 7:49 AM
[2019-01-27] MEDS: MYCOSTATIN SUSP PO SCH ×4 (08:43→21:44)
[2019-01-27] MEDS: PERIDEX MT SCH ×2 (08:43→21:44)
[2019-01-27] MEDS: LACTULOSE PO SCH ×2 (08:43→21:44)
[2019-01-27] MEDS: DULCOLAX PR SCH ×2 (09:34→21:55)
[2019-01-27] MEDS: ZYVOX 600 MG/D5W 600 MG/300 ML IVPB IV SCH ×2 (10:26→21:44)
--- NOTE | 2019-01-27 11:01 | PROGRESS NOTE ---
DATE: 01/27/2019 SUBJECTIVE: Mr. Kiser is feeling better sitting up in a chair. He has not had a bowel movement, but he is passing flatus. He would like his Haley catheter out, so I think we will take it out today. Remains afebrile. OBJECTIVE: Vital Signs: Temperature 98.1 degrees, pulse 88, respirations 18, blood pressure 132/85. P Eyes: Pupils are equal and round. Lungs: Clear in all lung salmon. Cardiovascular: Regular rhythm and rate without murmur or S3. Abdomen: Soft, nontender, nondistended. Skin: Warm and dry. : Urine output was 3200 mL. ASSESSMENT AND PLAN: 1. Chest x-ray: Bibasilar infiltrates compatible with pneumonia. Clinically doing much better. We are treating him for methicillin-resistant Staphylococcus aureus pneumonia and oral candidiasis. 2. Acute hypoxemic respiratory failure, improved. 3. Status post abdominal surgery for appendectomy and lysis of adhesions. Continue present antibiotic regimen and his supplementary oxygen. Will get his Haley catheter out. Continue physical therapy to increase his ambulation and strength. He is on linezolid 600 mg intravenous every 12 hours. He is getting normal saline right now at 85 mL an hour. cc: Lexx Hale MD
--- NOTE | 2019-01-27 18:04 | PULMONOLOGY PROGRESS NOTE ---
DATE: 01/27/2019 SUBJECTIVE: The patient reports he feels a little bit better. He has a cough but without significant sputum production. OBJECTIVE: The patient has been afebrile for the last 24 hours. Blood pressure 117/77, heart rate 76, respiratory rate 18, oxygen saturation 99%. HEENT: Pupils are equal and reactive. Oropharynx appears clear. Neck is supple. Chest reveals coarse rhonchi bilaterally with crackles in both lung bases. Cardiac exam: S1, S2. Abdomen is soft. Extremities without edema. DIAGNOSTIC DATA: Chest x-ray reveals bilateral infiltrates in both lower lobes. IMPRESSION: A 58-year-old with: 1. Methicillin-resistant Staphylococcus aureus pneumonia. 2. Status post abdominal surgery for appendectomy and lysis of adhesions. 3. Acute hypoxemic respiratory failure. PLAN: 1. Continue antibiotic regimen as outlined by Dr. Royce Gutierrez. 2. Continue bronchial hygiene. 3. Wean oxygen as tolerated. 4. Encourage mobilization as tolerated. cc: Tanner Robbins MD
[2019-01-27] MEDS: LOVENOX SUBQ SCH (21:45)
[2019-01-28] MEDS: XOPENEX NEB INH SCH ×6 (04:09→22:24)
[2019-01-28] MEDS: ATROVENT NEB INH SCH ×6 (04:09→22:24)
[2019-01-28 05:04] LABS: BLOOD TYPE ARTERIAL; SAMPLE BLOOD
[2019-01-28 05:05] LABS: ALLEN TEST YES; BE 7.4 mmoll (-3.0-3.0); HCO3-(ACT) 30.6 mmoll (20.0-26.0); METHB 1.5 % (0.0-1.5); MODALITY ROOM AIR; O2(CT) 12.2 mL/dL (15.0-23.0); O2HB 91.8 % (95.0-99.0); PCO2(98.6) 40 mmHg (35-45); PO2(98.6) 61 mmHg (60-100); THB 9.4 g/dL (11.5-17.4)
[2019-01-28] MEDS: PRILOSEC PO SCH (06:16)
[2019-01-28] MEDS: NS 1,000 ML IV SCH ×2 (06:16→16:36)
--- NOTE | 2019-01-28 08:02 | Diag Imaging Result Doc PS360 ---
EXAM: CHEST-1 VIEW - 01/28/2019 HISTORY: SOB TECHNIQUE: Portable chest COMPARISON: 01/27/2019 FINDINGS: Infiltrates at the bilateral bases appear to decreased mildly. There are some linear atelectasis at the right base similar to prior. There is no substantial pleural effusion or pneumothorax identified. Heart size is normal. IMPRESSION: Mild decrease in basilar infiltrates. Electronically signed by Tyler Rayo 01/28/2019 8:00 AM
[2019-01-28] MEDS: MUCOMYST 20% INH SCH ×3 (08:06→19:20)
[2019-01-28] MEDS: DULCOLAX PR SCH ×2 (08:42→20:48)
[2019-01-28] MEDS: MYCOSTATIN SUSP PO SCH ×4 (08:42→20:47)
[2019-01-28] MEDS: PERIDEX MT SCH ×2 (08:42→20:47)
[2019-01-28] MEDS: LACTULOSE PO SCH ×2 (08:42→20:48)
[2019-01-28] MEDS: ZYVOX 600 MG/D5W 600 MG/300 ML IVPB IV SCH ×3 (10:39→21:06)
--- NOTE | 2019-01-28 15:01 | PROGRESS NOTE ---
DATE: 01/28/2019 SUBJECTIVE: He is feeling better, much more comfortable, was resting. OBJECTIVE: Remains afebrile, temperature 97.8 degrees, pulse 80, respirations 18, blood pressure 118/72. Pupils are equal and round. Lungs were clear in all lung salmon. Cardiovascular Examination: Regular rhythm and rate without murmur or S3. Urine output was 500 mL. Chest x-ray, mild decrease in basilar infiltrates. ASSESSMENT AND PLAN: 1. Methicillin-resistant Staphylococcus aureus pneumonia, doing better. 2. Status post abdominal surgery for appendectomy and lysis of adhesions. 3. Acute hypoxemic respiratory failure which is improved. Air and gas exchange is markedly improved. 4. Continue present orders and physical therapy. Hopefully, he will get to go home soon. cc: Lexx Hale MD
[2019-01-28] MEDS: LOVENOX SUBQ SCH (20:47)
--- NOTE | 2019-01-28 21:37 | PULMONOLOGY PROGRESS NOTE ---
DATE: 01/28/2019 SUBJECTIVE: The patient is awake, alert, and conversant. He is without specific complaints. He has a fair cough effort. OBJECTIVE: Vital Signs: The patient has been afebrile for the last 24 hours. Blood pressure 131/74, heart rate 76, respiratory rate 16, oxygen saturation 97% on room air. HEENT: Pupils are equal and reactive. Oropharynx appears clear. Neck: Is supple. Chest: Reveals occasional rhonchi bilaterally. Cardiac exam: S1-S2. Abdomen: Is soft. Extremities: Without edema. LABORATORIES: Chest x-ray reveals mild decrease in bilateral infiltrates. IMPRESSION: A 58-year-old with 1. Methicillin-resistant Staphylococcus aureus pneumonia. 2. Status post abdominal surgery for appendectomy and lysis of adhesions. 3. Hypoxemic respiratory failure, which is resolving. PLAN: 1. Continue current antibiotic regimen. 2. Continue bronchial hygiene. 3. Followup chemistries and CBC tomorrow. cc: Tanner Robbins MD
[2019-01-29] MEDS: ATROVENT NEB INH SCH ×3 (03:28→11:29)
[2019-01-29] MEDS: XOPENEX NEB INH SCH ×3 (03:29→11:30)
[2019-01-29] MEDS: NS 1,000 ML IV SCH (04:28)
[2019-01-29 04:50] LABS: ALLEN TEST YES; BE 6.9 mmoll (-3.0-3.0); BLOOD TYPE ARTERIAL; HCO3-(ACT) 30.2 mmoll (20.0-26.0); METHB 1.3 % (0.0-1.5); O2(CT) 17.3 mL/dL (15.0-23.0); PCO2(98.6) 46 mmHg (35-45); PO2(98.6) 64 mmHg (60-100); SAMPLE BLOOD; SAO2 94.9 % (95.0-100.0); THB 13.4 g/dL (11.5-17.4); pH(98.6) 7.45 (7.35-7.45)
[2019-01-29 04:51] LABS: MODALITY ROOM AIR
[2019-01-29] MEDS: PRILOSEC PO SCH ×2 (05:18→06:12)
--- NOTE | 2019-01-29 06:45 | Diag Imaging Result Doc PS360 ---
EXAM: CHEST-1 VIEW HISTORY: SOB TECHNIQUE: Portable chest single view COMPARISON: 01/28/2019 FINDINGS: Poor inspiratory effort. The heart is mildly prominent. The infiltrates and atelectasis in the lower lungs. No pleural effusions identified. The right hemidiaphragm is elevated. IMPRESSION: Stable chest Electronically signed by Josiah Adkins 01/29/2019 6:43 AM
[2019-01-29 07:40] LABS: AGAP 11; ALB/GLOB RATIO 0.6; ALBUMIN 2.3 g/dL (3.5-5.0); ALKALINE PHOSPHATASE 222 U/L (32-122); BUN 7 mg/dL (8-22); CALCIUM 8.1 mg/dL (8.8-10.2); CHLORIDE 97 mmol/L (98-107); COSMO 270; CREATININE 0.6 mg/dL (0.7-1.2); ESTIMATED GFR > 60; GLUCOSE 167 mg/dL (70-104); GOT 54 U/L (10-34); GPT 86 U/L (10-44); MAGNESIUM 1.8 mg/dL (1.5-2.7); PHOSPHORUS 3.1 mg/dL (2.7-4.5); POTASSIUM 3.4 mmol/L (3.5-5.1); SODIUM 134 mmol/L (136-145); TCO2 26 mmol/L (25-35); TOTAL BILIRUBIN 0.39 mg/dL (0.20-1.00); TOTAL PROTEIN 6.3 g/dL (6.3-8.3)
--- NOTE | 2019-01-29 07:59 | INFECTIOUS DISEASE PROGRESS NO ---
DATE: 01/29/2019 PRESENT ILLNESS: The patient has methicillin-resistant Staph aureus pneumonia. He also has oral candidiasis, but this has cleared. MEDICATIONS: The patient is on Zyvox for his pneumonia, and nystatin for his oral candidiasis, which has cleared now. PHYSICAL EXAMINATION: Vital Signs: Temperature is 98.4 degrees, pulse 84, respirations 15, blood pressure 112/67. General: This is a fairly healthy-appearing, middle-aged male. He has come a long way since he came into the hospital. He is in no acute distress. HEENT: He can hear my spoken words and see near objects. His white coating on his tongue has cleared. The patient is edentulous. Neck: No pain with movement. Lungs: Clear to auscultation. Cardiovascular: Heart rate is regular with a systolic murmur. Abdomen: Soft and nontender. The patient's incision is intact. The clips are still present. Neurologic: The patient is alert. He is able to ambulate. He does not have a tremor. IMAGING AND LABORATORY DATA: The most recent labs I have are a CBC with a white count of 19,100, hemoglobin 12.2, and platelet count 392,000. Blood gases show a pH of 7.45, a PO2 of 64, and a pCO2 of 46. Creatinine is 0.6. GFR is greater than 60. The patient's chest x-ray for today shows infiltrates and atelectasis in the lower lungs without any change. ASSESSMENT AND PLAN: The patient has methicillin-resistant Staphylococcus aureus pneumonia. I have talked with Dr. Hale. Our plan is to discharge the patient today. I have, through the computer, a prescription for the patient to take Septra DS 1 by mouth every 12 hours for 10 days, and the patient will be given an appointment to come to my office in 10 days, at which time the patient will be examined, and a CBC and a creatinine and chest x-ray will be obtained. Some of the side effects of Septra, including rash, diarrhea, and avoiding sunlight have been explained to the patient, who agrees with treatment. COMORBIDITIES: The patient is a cigarette smoker. He drinks alcoholic beverages. His surgery was for lysis of adhesions for a small-bowel obstruction, surgical repair of an abdominal hernia, and an appendectomy for chronic appendicitis. cc: Royce Gutierrez MD
[2019-01-29] MEDS: MUCOMYST 20% INH SCH (08:05)
[2019-01-29] MEDS: DULCOLAX PR SCH (08:09)
[2019-01-29] MEDS: MYCOSTATIN SUSP PO SCH (08:09)
[2019-01-29] MEDS: LACTULOSE PO SCH (08:09)
[2019-01-29] MEDS: PERIDEX MT SCH (08:09)
[2019-01-29 08:19] VITALS: BP 131/71
[2019-01-29] MEDS: ZYVOX 600 MG/D5W 600 MG/300 ML IVPB IV SCH (09:31)
--- NOTE | 2019-01-29 10:50 | DISCHARGE SUMMARY ---
ADMISSION DATE: 01/12/2019 DISCHARGE DATE: 01/29/2019 HISTORY OF PRESENT ILLNESS: A 58-year-old with no primary care physician. Presented to the emergency room complaining of sudden onset of abdominal pain that started about 2 hours before coming to the emergency room. Described the pain as squeezing and stabbing type. States that he has had no warning. Shortly after the pain, he began to break out in a sweat. States that he was not sick prior to this. Denies any nausea, vomiting, or diarrhea. His abdomen was distended. He does have a noticeable umbilical hernia. Unable to tell if it was reducible. To any palpation, he screams and with quite a bit of guarding. PAST MEDICAL HISTORY: Unremarkable. PAST SURGICAL HISTORY: Unremarkable. HOSPITAL COURSE: Admitted with what appeared to be a small-bowel obstruction and constipation, abdominal pain, leukocytosis, elevated lipase. NG tube was placed for comfort. General surgery was consulted on 01/12/2019. [place] it was constipation, abdominal pain. They checked a followup abdominal flat and upright, and severe constipation, possibility of ileus, and partial small bowel obstruction could not be excluded. Dr. Carpenter was following. His white count was up to 17,000. Not particularly tender to palpation on 01/13/2019. Gave him a tap water enema to evacuate the stool in his colon. His white count did come down to 13,900. Followup abdominal x-ray on 01/14/2019, improved constipation. CT of the abdomen and pelvis on 01/16/2019, worsened distal small bowel obstruction. NG tube placement again for comfort. Taken for surgery on 01/17/2019. Did an exploratory laparotomy, lysis of adhesions, and had appendicitis, appendectomy and repair of umbilical hernia. The patient showed slow but good recovery. He had an echocardiogram on 01/20/2019, moderate sclerosis of the aortic valve demonstrated. Pulmonic valve was not well demonstrated. Mild to moderate concentric left ventricular hypertrophy. Ejection fraction of 65%. The patient showed improvement. Advanced his diet. Pulmonary was following him. He developed a methicillin-resistant Staphylococcus aureus pneumonia and was put on antibiotics and showed recovery. The patient continued slow recovery and wanted to go home. [place] he was ready go home on 01/29/2019. Dr. Gutierrez is going to put him on Septra DS 1 by mouth every 12 hours for 10 days. An appointment to follow up with him back in his office in 10 days. He will follow up with surgery as well. He has no primary care physician. Encouraged him to try and pursue that. DISCHARGE MEDICATIONS: I sent him home on some MiraLAX. Dr. Gutierrez has arranged for his antibiotic for another 10 days. FOLLOWUP: Follow up with Dr. Guiterrez in 10 days. cc: Lexx Hale MD
== END 2019-01-29 12:20 | disposition home or self-care (01) | DRG 335 ==
LOC: ED 11:24 → SUATTDRO 15:22 → 4N 15:22 → ICU 01-20 09:34 → 2N 01-27 05:25
PROVIDERS: ATTEND Emergency Medicine